=== PATIENT | male | born 1945 | race Caucasian/White ===

== ENCOUNTER 2022-10-10 22:39 | Inpatient (IN) | payer MEDICARE, BC, SELFPAY ==
[2022-10-10 22:53] VITALS: BP 160/92; PULSE 74; TEMP 36.2; O2SAT 97; BMI 26.6
--- NOTE | 2022-10-10 22:58 | ED.GENADULT ---
HPI - General Adult General Time Seen by Provider: 23:05 <Lul Love MD - Last Filed: 10/14/22 05:40> Date Seen: 10/10/22 <Lul Love MD - Last Filed: 10/14/22 05:40> Chief complaint: Chest Pain <Lul Love MD - Last Filed: 10/14/22 05:40> Stated complaint: Abdominal pain, Chest pain <Lul Love MD - Last Filed: 10/14/22 05:40> Time Seen by Provider: 10/10/22 22:58 <Lul Love MD - Last Filed: 10/14/22 05:40> Source: patient and family <Lul Love MD - Last Filed: 10/14/22 05:40> Mode of arrival: ambulatory <Lul Love MD - Last Filed: 10/14/22 05:40> Limitations: no limitations <Lul Love MD - Last Filed: 10/14/22 05:40> History of Present Illness HPI narrative: 77-year-old male who comes in today with chest and abdominal pain. Patient was eating about 4 hours prior to coming emergency department had abrupt onset of upper abdominal pain going into the chest. He had nausea and some dry heaves but no vomiting. Pain in the chest is at relieved now but he still continues to have some abdominal pain. This is generalized but more toward the middle of the abdomen and under the breast bone. No relieving or exacerbating factors, does not seem to be worse with eating, drinking, or movement. Has not taken anything for his symptoms. No prior abdominal surgeries. He was started on turbinafine for onychomycosis about a week ago. <Lul Love MD - Last Filed: 10/14/22 05:40> Related Data Home medications: Home Medications Medication Instructions Recorded Confirmed Lactobacillus acidophilus 1.5 mg 100 mmu cells PO DAILY 05/28/22 10/11/22 (250 million cell) capsule (Probiotic Acidophilus) acetaminophen 325 mg tablet 650 mg PO Q4-6H PRN 05/28/22 10/11/22 chlorthalidone 25 mg tablet 25 mg PO Q48H 05/28/22 10/11/22 coenzyme Q10 100 mg capsule 100 mg PO DAILY 05/28/22 10/11/22 fluorouracil 5 % topical cream 5 applic topical .One Day Per Week 05/28/22 10/11/22 lisinopril 20 mg tablet 20 mg PO DAILY 05/28/22 10/11/22 loratadine 10 mg tablet 10 mg PO DAILY 05/28/22 10/11/22 multivitamin 1 tab PO QAM 05/28/22 10/11/22 omega-3 fatty acids 1 cap PO DAILY 05/28/22 10/11/22 omeprazole 20 mg capsule,delayed 20 mg PO DAILY 05/28/22 10/11/22 release simvastatin 10 mg tablet 10 mg PO HS 05/28/22 10/11/22 trazodone 100 mg tablet 100 mg PO HS 05/28/22 10/11/22 terbinafine HCl 250 mg tablet 250 mg PO DAILY 10/11/22 10/11/22 Previous Rx's Medication Instructions Recorded oxycodone 5 mg tablet 5 mg PO Q6H PRN pain #10 tabs 10/12/22 sennosides 8.6 mg capsule (senna) 8.6 mg PO DAILY PRN constipation 10/12/22 #90 caps <Lul Love MD - Last Filed: 10/14/22 05:40> Allergies/adverse reactions: Allergies Allergy/AdvReac Type Severity Reaction Status Date / Time No Known Allergies Allergy Verified 10/01/22 09:40 <Lul Love MD - Last Filed: 10/14/22 05:40> [facility] Medical History: Medical History (Updated 10/12/22 @ 17:39 by Blanche Titus MD) Toenail fungus <Lul Love MD - Last Filed: 10/14/22 05:40> Surgical History: Surgical History (Updated 10/12/22 @ 17:36 by Blanche Titus MD) History of cholecystectomy History of tonsillectomy <Lul Love MD - Last Filed: 10/14/22 05:40> Social History: Social History Narrative: He is here with his . 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 Never smoke cigarettes. Recently has been drinking 2 alcoholic beverages per day Smoking Status: Never smoker How often do you have a drink containing alcohol: 4 or more times a week How many standard drinks containing alcohol do you have on a typical day: 3 or 4 How often do you have six or more drinks on one occasion: Never AUDIT-C Alcohol total score: 5 Non-prescribed substance use: denies use Caffeine: No service: No <Lul Love MD - Last Filed: 10/14/22 05:40> Exam Narrative: Exam Narrative: General: Well-developed and well-nourished, no acute distress Head: Atraumatic and normocephalic Eyes: Pupils are equal reactive, extraocular motions intact, conjunctiva clear ENT: External nose and ears are normal, posterior pharynx without erythema or exudate Neck: No midline cervical tenderness, full spontaneous range of motion the neck, trachea midline, no adenopathy Heart: Regular rate and rhythm no murmurs or thrills Lungs: Clear to auscultation bilaterally without wheezes or crackles Abdomen: Soft, mild diffuse tenderness worse in the epigastrium and right lower quadrant, nondistended with active bowel sounds Musculoskeletal: No tenderness, deformity, or edema Neurologic: Awake, alert, and oriented x3, no gross focal neurologic deficits, cranial nerves intact as tested Psych: Mood and affect are appropriate Skin: No rashes <Lul Love MD - Last Filed: 10/14/22 05:40> Const: Vital Signs, click to edit/add: Vital Signs - 24 hr 10/10/22 22:53 10/10/22 23:09 10/10/22 23:15 Temperature 97.1 F L Pulse Rate 82 85 Pulse Rate [Pulse Oximeter] 74 Blood Pressure Blood Pressure [Ri ght Upper Arm] 160/92 H Pulse Oximetry 97 96 96 Oxygen Delivery Me thod Room Air 10/10/22 23:30 10/10/22 23:45 10/11/22 00:07 Temperature Pulse Rate 79 77 92 Pulse Rate [Pulse Oximeter] Blood Pressure Blood Pressure [Ri ght Upper Arm] Pulse Oximetry 96 94 98 Oxygen Delivery Me thod 10/11/22 00:15 10/11/22 00:30 10/11/22 00:45 Temperature Pulse Rate 82 85 75 Pulse Rate [Pulse Oximeter] Blood Pressure Blood Pressure [Ri ght Upper Arm] Pulse Oximetry 95 96 97 Oxygen Delivery Me thod 10/11/22 01:00 10/11/22 01:15 10/11/22 01:30 Temperature Pulse Rate 66 66 68 Pulse Rate [Pulse Oximeter] Blood Pressure Blood Pressure [Ri ght Upper Arm] Pulse Oximetry 95 96 96 Oxygen Delivery Me thod 10/11/22 01:45 10/11/22 02:00 10/11/22 02:07 Temperature Pulse Rate 71 76 70 Pulse Rate [Pulse Oximeter] Blood Pressure 151/79 H Blood Pressure [Ri ght Upper Arm] Pulse Oximetry 90 96 95 Oxygen Delivery Me thod <Lul Love MD - Last Filed: 10/14/22 05:40> Vital Signs, click to edit/add: Vital Signs - 24 hr 10/10/22 22:53 10/10/22 23:09 10/10/22 23:15 Temperature 97.1 F L Pulse Rate 82 85 Pulse Rate [Pulse Oximeter] 74 Blood Pressure Blood Pressure [Ri ght Upper Arm] 160/92 H Pulse Oximetry 97 96 96 Oxygen Delivery Me thod Room Air 10/10/22 23:30 10/10/22 23:45 10/11/22 00:07 Temperature Pulse Rate 79 77 92 Pulse Rate [Pulse Oximeter] Blood Pressure Blood Pressure [Ri ght Upper Arm] Pulse Oximetry 96 94 98 Oxygen Delivery Me thod 10/11/22 00:15 10/11/22 00:30 10/11/22 00:45 Temperature Pulse Rate 82 85 75 Pulse Rate [Pulse Oximeter] Blood Pressure Blood Pressure [Ri ght Upper Arm] Pulse Oximetry 95 96 97 Oxygen Delivery Me thod 10/11/22 01:00 10/11/22 01:15 10/11/22 01:30 Temperature Pulse Rate 66 66 68 Pulse Rate [Pulse Oximeter] Blood Pressure Blood Pressure [Ri ght Upper Arm] Pulse Oximetry 95 96 96 Oxygen Delivery Me thod 10/11/22 01:45 10/11/22 02:00 10/11/22 02:07 Temperature Pulse Rate 71 76 70 Pulse Rate [Pulse Oximeter] Blood Pressure 151/79 H Blood Pressure [Ri ght Upper Arm] Pulse Oximetry 90 96 95 Oxygen Delivery Me thod <Judith Reeder MD - Last Filed: 10/11/22 02:38> Course Course Hospital Course: Patient seen and examined, prior records reviewed. Patient presents with abrupt onset abdominal pain radiating to the chest, now just in the abdomen. Epigastric and right lower quadrant tenderness on exam. Differential diagnosis includes but not limited to gastritis, acute cholecystitis, enteritis, appendicitis, bowel obstruction. Acute coronary syndrome possible but less likely. Labs and CT scan of the abdomen and pelvis are ordered. Patient declines pain medicine and nausea medicine now. <Lul Love MD - Last Filed: 10/14/22 05:40> Reevaluation(s) Reevaluation #1: Labs are reassuring other than elevated lipase periods symptoms today certainly could be secondary to acute pancreatitis, likely from gallstones as patient has no history of alcohol use or diabetes. CT scan is pending. <Lul Love MD - Last Filed: 10/14/22 05:40> Time: 23:40 <Lul Love MD - Last Filed: 10/14/22 05:40> Vital Signs Vital signs: Initial Vital Signs Temperature 97.1 F L 10/10/22 22:53 Temperature Source Temporal Artery Scan 10/10/22 22:53 Pulse Rate 74 10/10/22 22:53 Blood Pressure 160/92 H 10/10/22 22:53 Blood Pressure Mean 114 10/10/22 22:53 Pulse Oximetry 97 10/10/22 22:53 Oxygen Delivery Method 10/10/22 22:53 Vital Signs Temperature 97.1 F L 10/10/22 22:53 Pulse Rate 74 10/10/22 22:53 Blood Pressure 160/92 H 10/10/22 22:53 Pulse Oximetry 97 10/10/22 22:53 Oxygen Delivery Method 10/10/22 22:53 Temperature 98 F 10/12/22 17:53 Pulse Rate 80 10/12/22 17:53 Respiratory Rate 16 10/12/22 17:53 Blood Pressure 153/87 H 10/12/22 17:53 Pulse Oximetry 95 10/12/22 16:00 Oxygen Delivery Method 10/12/22 16:00 Oxygen Flow Rate 0 10/12/22 15:30 <Lul Love MD - Last Filed: 10/14/22 05:40> Initial Vital Signs Temperature 97.1 F L 10/10/22 22:53 Temperature Source Temporal Artery Scan 10/10/22 22:53 Pulse Rate 74 10/10/22 22:53 Blood Pressure 160/92 H 10/10/22 22:53 Blood Pressure Mean 114 10/10/22 22:53 Pulse Oximetry 97 10/10/22 22:53 Oxygen Delivery Method 10/10/22 22:53 Vital Signs Temperature 97.1 F L 10/10/22 22:53 Pulse Rate 74 10/10/22 22:53 Blood Pressure 160/92 H 10/10/22 22:53 Pulse Oximetry 97 10/10/22 22:53 Oxygen Delivery Method 10/10/22 22:53 Temperature 98 F 10/12/22 17:53 Pulse Rate 80 10/12/22 17:53 Respiratory Rate 16 10/12/22 17:53 Blood Pressure 153/87 H 10/12/22 17:53 Pulse Oximetry 95 10/12/22 16:00 Oxygen Delivery Method 10/12/22 16:00 Oxygen Flow Rate 0 10/12/22 15:30 <Judith Reeder MD - Last Filed: 10/11/22 02:38> Medical Decision Making MDM Narrative Medical decision making narrative: Update: 0145 Dr. Reeder: Counseled patient and his on diagnostic imaging and lab findings. Suspect gallstone pancreatitis. Suspect that he has actually passed the stone. No signs of unstable vitals, hypotension, severe uncontrolled pain. Would recommend hospitalization, ultrasound in the morning, NPO, IV fluids. Accepted by [facility] hospitalist. Requests full code status, will allow sips of clear liquids. IV fluid bolus started. Additional orders will come from hospitalist team. <Judith Reeder MD - Last Filed: 10/11/22 02:38> Lab Data Labs: Lab Results 10/10/22 10/10/22 10/10/22 Range/Units 22:55 23:00 23:00 WBC 10.21 (4.50-11.00) K/uL RBC 4.60 (4.30-5.90) m/uL Hgb 14.9 (13.5-17.5) gm/dL Hct 43.7 (37.0-53.0) % MCV 95 (80-100) fL MCH 32 (26-34) pg MCHC 34 (32-36) gm/dL RDW Coeff of [place] 12.6 (11.5-15.5) % Plt Count 213 (140-440) K/uL Neut % (Auto) 80.2 H (42.0-72.0) % Lymph % (Auto) 12.4 L (20-44) % [place] % (Auto) 6.4 (0.0-11.0) % Eos % (Auto) 0.2 (0.0-7.0) % Baso % (Auto) 0.5 (0.0-3.0) % Neut # (Auto) 8.20 H (1.7-7.0) K/uL Lymph # (Auto) 1.30 (0.90-2.90) K/uL [place] # (Auto) 0.70 (0.00-0.90) K/UL Eos # (Auto) 0.02 (0.00-0.50) K/uL Baso # (Auto) 0.05 (0.00-0.30) K/uL Abs Immat Gran (auto) 0.03 (0.00-0.30) K/uL Imm/Tot Granulo (auto) 0.3 % Sodium 136 (135-149) mmol/L Potassium 3.7 (3.6-5.1) mmol/L Chloride 101 (96-114) mmol/L Carbon Dioxide 27 (20-32) mmol/L BUN 22 (7-30) mg/dL Creatinine 1.1 (0.5-1.5) mg/dL Estimated Creat Clear 55.27 Estimated GFR 70 ml/min Glucose 125 H (60-115) mg/dL Calcium 9.1 (8.4-10.6) mg/dL Total Bilirubin 0.5 (0.1-1.5) mg/dL Direct Bilirubin 0.2 (0.0-0.5) mg/dL AST 34 (12-35) U/L ALT 22 (4-50) U/L Alkaline Phosphatase 124 (40-150) U/L Total Protein 7.2 (6.0-8.3) g/dL Albumin 4.6 (3.3-5.0) g/dL Lipase 3695 H (23-300) U/L SARS-CoV-2 (PCR) (Negative) Influenza Type A (PCR) (Negative) Influenza Type B (PCR) (Negative) POC Troponin I 0.01 (0.01-0.04) ng/ml 10/11/22 Range/Units 03:20 WBC (4.50-11.00) K/uL RBC (4.30-5.90) m/uL Hgb (13.5-17.5) gm/dL Hct (37.0-53.0) % MCV (80-100) fL MCH (26-34) pg MCHC (32-36) gm/dL RDW Coeff of [place] (11.5-15.5) % Plt Count (140-440) K/uL Neut % (Auto) (42.0-72.0) % Lymph % (Auto) (20-44) % [place] % (Auto) (0.0-11.0) % Eos % (Auto) (0.0-7.0) % Baso % (Auto) (0.0-3.0) % Neut # (Auto) (1.7-7.0) K/uL Lymph # (Auto) (0.90-2.90) K/uL [place] # (Auto) (0.00-0.90) K/UL Eos # (Auto) (0.00-0.50) K/uL Baso # (Auto) (0.00-0.30) K/uL Abs Immat Gran (auto) (0.00-0.30) K/uL Imm/Tot Granulo (auto) % Sodium (135-149) mmol/L Potassium (3.6-5.1) mmol/L Chloride (96-114) mmol/L Carbon Dioxide (20-32) mmol/L BUN (7-30) mg/dL Creatinine (0.5-1.5) mg/dL Estimated Creat Clear Estimated GFR ml/min Glucose (60-115) mg/dL Calcium (8.4-10.6) mg/dL Total Bilirubin (0.1-1.5) mg/dL Direct Bilirubin (0.0-0.5) mg/dL AST (12-35) U/L ALT (4-50) U/L Alkaline Phosphatase (40-150) U/L Total Protein (6.0-8.3) g/dL Albumin (3.3-5.0) g/dL Lipase (23-300) U/L SARS-CoV-2 (PCR) Negative SARS-CoV-2 (Negative) Influenza Type A (PCR) Negative PCR FLU A (Negative) Influenza Type B (PCR) Negative PCR FLU B (Negative) POC Troponin I (0.01-0.04) ng/ml <Lul Love MD - Last Filed: 10/14/22 05:40> Lab Results 10/10/22 10/10/22 10/10/22 Range/Units 22:55 23:00 23:00 WBC 10.21 (4.50-11.00) K/uL RBC 4.60 (4.30-5.90) m/uL Hgb 14.9 (13.5-17.5) gm/dL Hct 43.7 (37.0-53.0) % MCV 95 (80-100) fL MCH 32 (26-34) pg MCHC 34 (32-36) gm/dL RDW Coeff of Mason 12.6 (11.5-15.5) % Plt Count 213 (140-440) K/uL Neut % (Auto) 80.2 H (42.0-72.0) % Lymph % (Auto) 12.4 L (20-44) % [place] % (Auto) 6.4 (0.0-11.0) % Eos % (Auto) 0.2 (0.0-7.0) % Baso % (Auto) 0.5 (0.0-3.0) % Neut # (Auto) 8.20 H (1.7-7.0) K/uL Lymph # (Auto) 1.30 (0.90-2.90) K/uL [place] # (Auto) 0.70 (0.00-0.90) K/UL Eos # (Auto) 0.02 (0.00-0.50) K/uL Baso # (Auto) 0.05 (0.00-0.30) K/uL Abs Immat Gran (auto) 0.03 (0.00-0.30) K/uL Imm/Tot Granulo (auto) 0.3 % Sodium 136 (135-149) mmol/L Potassium 3.7 (3.6-5.1) mmol/L Chloride 101 (96-114) mmol/L Carbon Dioxide 27 (20-32) mmol/L BUN 22 (7-30) mg/dL Creatinine 1.1 (0.5-1.5) mg/dL Estimated Creat Clear 55.27 Estimated GFR 70 ml/min Glucose 125 H (60-115) mg/dL Calcium 9.1 (8.4-10.6) mg/dL Total Bilirubin 0.5 (0.1-1.5) mg/dL Direct Bilirubin 0.2 (0.0-0.5) mg/dL AST 34 (12-35) U/L ALT 22 (4-50) U/L Alkaline Phosphatase 124 (40-150) U/L Total Protein 7.2 (6.0-8.3) g/dL Albumin 4.6 (3.3-5.0) g/dL Lipase 3695 H (23-300) U/L SARS-CoV-2 (PCR) (Negative) Influenza Type A (PCR) (Negative) Influenza Type B (PCR) (Negative) POC Troponin I 0.01 (0.01-0.04) ng/ml 10/11/22 Range/Units 03:20 WBC (4.50-11.00) K/uL RBC (4.30-5.90) m/uL Hgb (13.5-17.5) gm/dL Hct (37.0-53.0) % MCV (80-100) fL MCH (26-34) pg MCHC (32-36) gm/dL RDW Coeff of Mason (11.5-15.5) % Plt Count (140-440) K/uL Neut % (Auto) (42.0-72.0) % Lymph % (Auto) (20-44) % [place] % (Auto) (0.0-11.0) % Eos % (Auto) (0.0-7.0) % Baso % (Auto) (0.0-3.0) % Neut # (Auto) (1.7-7.0) K/uL Lymph # (Auto) (0.90-2.90) K/uL [place] # (Auto) (0.00-0.90) K/UL Eos # (Auto) (0.00-0.50) K/uL Baso # (Auto) (0.00-0.30) K/uL Abs Immat Gran (auto) (0.00-0.30) K/uL Imm/Tot Granulo (auto) % Sodium (135-149) mmol/L Potassium (3.6-5.1) mmol/L Chloride (96-114) mmol/L Carbon Dioxide (20-32) mmol/L BUN (7-30) mg/dL Creatinine (0.5-1.5) mg/dL Estimated Creat Clear Estimated GFR ml/min Glucose (60-115) mg/dL Calcium (8.4-10.6) mg/dL Total Bilirubin (0.1-1.5) mg/dL Direct Bilirubin (0.0-0.5) mg/dL AST (12-35) U/L ALT (4-50) U/L Alkaline Phosphatase (40-150) U/L Total Protein (6.0-8.3) g/dL Albumin (3.3-5.0) g/dL Lipase (23-300) U/L SARS-CoV-2 (PCR) Negative SARS-CoV-2 (Negative) Influenza Type A (PCR) Negative PCR FLU A (Negative) Influenza Type B (PCR) Negative PCR FLU B (Negative) POC Troponin I (0.01-0.04) ng/ml <Judith Reeder MD - Last Filed: 10/11/22 02:38> ECG Data Attestation: I personally reviewed and interpreted this ECG as follows: <Lul Love MD - Last Filed: 10/14/22 05:40> Prior ECG tracings: not available for review <Lul Love MD - Last Filed: 10/14/22 05:40> Interpretation: Performed at 10:46 p.m. demonstrates sinus rhythm first-degree AV block and occasional PVCs, no acute ST elevations or depressions, normal intervals, normal axis, QTC 449, AK 266. No prior for comparison. <Lul Love MD - Last Filed: 10/14/22 05:40> Discharge Plan Discharge Clinical Impression: Acute gallstone pancreatitis <Lul Love MD - Last Filed: 10/14/22 05:40> Patient Disposition: Admitted As Inpatient <Lul Love MD - Last Filed: 10/14/22 05:40> Condition: Stable <Lul Love MD - Last Filed: 10/14/22 05:40> Activity Level: No strenuous activity <Lul Love MD - Last Filed: 10/14/22 05:40> No strenuous activity <Judith Reeder MD - Last Filed: 10/11/22 02:38> Activity Detail: Activity as tolerated. Avoid strenuous activity. No lifting greater than 20 lb for 2 weeks. <Lul Love MD - Last Filed: 10/14/22 05:40> Activity as tolerated. Avoid strenuous activity. No lifting greater than 20 lb for 2 weeks. <Judith Reeder MD - Last Filed: 10/11/22 02:38> Discharge Diet: Low Fat/Low Cholesterol <Lul Love MD - Last Filed: 10/14/22 05:40> Low Fat/Low Cholesterol <Judith Reeder MD - Last Filed: 10/11/22 02:38> Diet Detail: Continue with a low-fat diet for 2 weeks. After 2 weeks you can start adding in more normal foods. <Lul Love MD - Last Filed: 10/14/22 05:40> Continue with a low-fat diet for 2 weeks. After 2 weeks you can start adding in more normal foods. <Judith Reeder MD - Last Filed: 10/11/22 02:38>
[2022-10-10 23:09] VITALS: PULSE 82; O2SAT 96
--- NOTE | 2022-10-10 23:09 | CRLHL7_ITS ---
For Patients: As a result of the Century Cures Act, medical imaging exams and procedure reports are released immediately into your electronic medical record. You may view this report before your referring provider. If you have questions, please contact your health care provider. INDICATION: Abdominal pain. TECHNIQUE: CT abdomen and pelvis acquired with 85 cc Isovue 370 IV contrast. COMPARISON: CT abdomen 10/13/2015. FINDINGS: Lower chest: Mild bibasilar atelectasis. Coronary atherosclerotic calcification. Liver: Unremarkable. Normal in size and attenuation. No suspicious masses. Gallbladder and bile ducts: Small cholelithiasis within the gallbladder neck. No pericholecystic fluid or mural thickening. Mild intrahepatic biliary ductal dilatation. The common bile duct is normal diameter for the patient`s age Pancreas: Unremarkable. No mass or inflammation. Spleen: Unremarkable. Normal in size. No masses. Adrenal glands: Unremarkable. No nodules. Kidneys: Unremarkable. No suspicious masses, stones, or hydronephrosis. GI tract: Unremarkable. Normal in caliber. No sign of mass or inflammation. The appendix is not clearly visualized; however, no inflammatory changes are seen in the right lower quadrant. Vasculature: Normal caliber abdominal aorta with moderate to severe atherosclerotic calcification. Mesenteric arteries are patent. Lymph nodes: No lymphadenopathy. Peritoneum/Abdominal Wall: Unremarkable. No free air or significant free fluid. Pelvis: Unremarkable. Bones: Advanced degenerative changes of the spine. IMPRESSION: Mild intrahepatic biliary ductal dilatation without dilatation of the common bile duct. This is of unclear etiology/clinical significance. Cholelithiasis without evidence of cholecystitis. Otherwise, no acute findings within the abdomen and pelvis. Please note that all CT scans at this facility use dose modulation, iterative reconstruction, and/or weight-based dosing when appropriate to reduce radiation dose to as low as reasonably achievable. Dictated by Steve Barriga MD @ 10/11/2022 12:54:59 AM (Electronically Signed)
[2022-10-10 23:11] LABS: Troponin, Point-of-Care* 0.01 ng/ml (0.01-0.04)
[2022-10-10 23:15] VITALS: PULSE 85; O2SAT 96
--- OUTSIDE RECORDS SUMMARY | 2022-10-10 23:17 | XMS_ITS | Clinical Summary ---
:1945 Author Organization [employer] [facility] [place] [address] Care Team Providers Name Role Phone Sixto Russell Raymond Unavailable Reanna Willard MD Primary Care Provider Allergies Active Allergy Reactions Severity Noted Date Comments Atorvastatin Myalgia 07/10/2008 Medications Medication Sig Dispensed Refills Start Date End Date Status calcium 600 mg Take 1 capsule by 0 12/17/2010 Active capsuleIndications: mouth once daily. Preventative health care coenzyme q10 (CO Take by mouth once 0 12/17/2010 Active Q-10) 100 mg daily. CapIndications: Preventative health care omega-3 fatty Take by mouth. 0 12/17/2010 Active acids-vitamin E (FISH OIL) 1,000 mg CapIndications: Mixed hyperlipidemia multivitamin-mineral Take 1 tablet by 0 12/17/2010 Active s therapeutic mouth once daily. (THERAPEUTIC-M) tabletIndications: Preventative health care cetirizine (ZYRTEC) Take 1 tablet by 0 12/17/2010 Active 10 mg mouth once daily. tabletIndications: Chronic rhinitis chlorthalidone Take 1 tablet by 90 tablet 3 04/26/2013 Active (HYGROTON) 25 mg mouth once daily. tabletIndications: Unspecified essential hypertension lisinopril Take 1 tablet by 90 tablet 3 04/26/2013 A ctive (PRINIVIL; ZESTRIL) mouth once daily. 20 mg tabletIndications: Unspecified essential hypertension omeprazole Take 1 capsule by 90 capsule 3 04/26/2013 Active (PRILOSEC) 20 mg mouth once daily capsuleIndications: before a meal. Esophageal reflux traZODone (DESYREL) Take 1 tablet by 90 tablet 3 04/26/2013 Active 100 mg mouth at bedtime. tabletIndications: Insomnia, unspecified fluorouracil 5% 0 07/05/2021 Act nicci topical (EFUDEX) 5 % cream simvastatin (ZOCOR) 0 07/08/2021 Active 10 mg tablet HYDROcodone-acetamin Take 1 Tablet by 21 Tablet 0 10/19/2021 Active ophen ([place]) 5-325 mouth every 4 hours mg per if needed for Pain. tabletIndications: Max acetaminophen Spinal stenosis of dose: 4000mg in 24 lumbar region with hrs. neurogenic claudication Active Problems Problem Noted Date Sciatica of right side 04/26/2013 Onychomycosis 04/26/2013 Overview: Left toes; will observe ACP (advance care planning) 03/09/2012 Overview: Discussed. 03/09/2012 Prostate nodule 03/09/2012 Overview: Noted first time today 03/09/2012 Erectile dysfunction 01/25/2011 Left hip pain 11/09/2009 Overview: leg length discrepancy - hip pain resolv ed with shoe lift! 03/12/2010 Preventative health care 01/06/2009 Overview: Colonoscopy 01/2009 normal repeat in10 ye ars Unspecified essential hypertension 10/18/2008 Chronic rhinitis 10/15/2007 Sensorineural hearing loss, bilateral 10/15/2007 Other malignant neoplasm of skin, site unspecified Overview: basal cell carcinoma neck Esophageal reflux 10/15/2007 Insomnia, unspecified 10/15/2007 Routine general medical examination at [facility] acility 10/15/2007 Impaired fasting glucose 10/15/2007 Special screening for malignant neoplasm of prostate 0 07/07/2007 Mixed hyperlipidemia 07/07/2007 Immunizations Name Administration Dates Next Due AMB Influenza, IIV3 (Age >=3 09/01/2013, 08/16/2011, 008, years)(Flu Clinic Only) 08/26/2008 Influenza A (H1N1), Inactivated (Age 0111/09/2009 >=3 Years) Influenza, IIV3 (Age >=3 years) 09/03/2012, 07/23/2010, 10/0 11/2008, 09/30/2007 Pneumococcal Poly,23-Valent 03/09/2012 (Pneumovax) Td (Age >=7 Years) 06/02/2002 Tdap 01/24/2011 Tuberculin (PPD) 07/31/1998 Zoster (Zostavax-ZVL, live) 10/15/2007 Family History Medical History Relation Name Comments Diabetes Brother 2 Bertram Hypertension Brother 2 Bertram Other Brother 2 Bertram Obesity Heart Disease Father Alex Hypertension Father Alex Stroke Father Alex Diabetes Maternal Grandmother Day Cancer Mother Day Corrales LIver Diabetes Mother Day Corrales Anesthesia Problem No Family History Blood Disease No Family History Relation Name Status Comments Brother 1 Alex (Age 30) MVA Brother 2 Bertram Alive Father Alex (Age 78) CVA,NE Maternal Grandmother Day Mother Day Corrales (Age 74) Liver Ca Social History Tobacco Use Types Packs/Day Years Used Date Never Smoker Smokeless Tobacco: Never Used Tobacco Cessation: Counseling Given: Yes Alcohol Use Standard Drinks/Week Comments Yes 5 (1 standard drink = 0.6 oz pure alcoho l) 2-3 per week Alcohol Habits Answer Date Recorded How often do you have a drink containing alcohol? Not asked How many drinks containing alcohol do you have on a Not aske d typical day when you are drinking? How often do you have six or more drinks on one occasion? No t asked Comment: 2-3 per week 01/24/2011 Sex Assigned at Date Recorded Not on file Obstetrics History Last Filed Vital Signs Vital Sign Reading Time Taken Comments Blood Pressure 124/68 11/29/2021 8:17 AM SHEET TAKER Pulse 58 11/29/2021 8:17 AM SHEET TAKER Temperature 36.7 ??C (98 ??F) 11/29/2021 8:17 AM SHEET TAKER Respiratory Rate - - Oxygen Saturation 99% 11/29/2021 8:17 AM SHEET TAKER Inhaled Oxygen Concentration - - Weight 77.1 kg (170 lb) 09/05/2021 11:17 AM CDT Height 174 cm (5' 8.5) 09/03/2013 12:48 PM CDT Body Mass Index 25.47 09/03/2013 12:48 PM CDT Plan of Treatment Health Maintenance Due Date Last Done Comments Depression screening for age 12+ 1958 BMI (ht and wt on same day) for 1964 age 18+ Hepatitis C screening for age 1008/07/1964 18-79 Zoster (shingles) series for age 0212/10/2007 10/15/2007 50+ (2 of 3) Pneumococcal series for age 65+ (2 03/09/2013 03/09/2012 - PCV) Medicare Wellness for age 65+ 04/26/2014 04/26/2013, 2011 Tetanus booster 01/24/2021 01/24/2011, 06/02/2002 COVID-19 vaccine series (3 - 03/12/2021 01/15/2021, 021 Booster for Moderna series) Influenza for age 65+ 07/04/2022 09/01/2013, 09/03/2012, 08/16/2011, Additional history exists Tdap Completed 01/24/2011 Results Not on filefrom Last 3 Months Insurance Payer Benefit Plan / Subscriber ID Effective Dates Phone Addre ss Type Group BLUE CROSS MR BLUE CROSS [id number] 2016-Present [address] [address] [place], [place] ONLY [id number] Advance Directives Documents on File Type Date Recorded 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, 02/02 Care Teams Contracts Officer Relationship Specialty Start Date End Date Reanna Willard MD PCP - General Internal Medicine 08/07/171999 [place] [address] Sixto Russell Cork Slabs Sawyer 03/09/[address] [place] [id number]
[2022-10-10 23:21] LABS: Basophils Absolute Auto 0.05 K/uL (0.00-0.30); Basophils Percent Auto 0.5 % (0.0-3.0); Eosinophils Absolute Auto 0.02 K/uL (0.00-0.50); Eosinophils Percent Auto 0.2 % (0.0-7.0); Hematocrit 43.7 % (37.0-53.0); Hemoglobin* 14.9 gm/dL (13.5-17.5); Immature Granulocytes Abs Auto 0.03 K/uL (0.00-0.30); Immature Granulocytes Pct Auto 0.3 %; Lymphocytes Percent Auto 12.4 % (20-44); Mean Corpuscular HGB Conc 34 gm/dL (32-36); Mean Corpuscular Hemoglobin 32 pg (26-34); Mean Corpuscular Volume 95 fL (80-100); Monocytes Percent Auto 6.4 % (0.0-11.0); Neutrophils Percent Auto 80.2 % (42.0-72.0); Platelet Count* 213 K/uL (140-440); RDW Coefficient of Variation % 12.6 % (11.5-15.5); White Blood Count* 10.21 K/uL (4.50-11.00)
[2022-10-10 23:22] LABS: Chloride* 101 mmol/L (96-114); Slide Review Reflex No
[2022-10-10 23:23] LABS: Albumin* 4.6 g/dL (3.3-5.0); Potassium* 3.7 mmol/L (3.6-5.1); Sodium* 136 mmol/L (135-149)
[2022-10-10 23:25] LABS: Creatinine* 1.1 mg/dL (0.5-1.5); Est. Creatinine Clearance* 55.27; Estimated Glomerular Filt Rate 70 ml/min
[2022-10-10 23:26] LABS: Alanine Aminotransferase* 22 U/L (4-50); Alkaline Phosphatase* 124 U/L (40-150); Aspartate Amino Transferase* 34 U/L (12-35); Bilirubin Direct* 0.2 mg/dL (0.0-0.5); Bilirubin Total* 0.5 mg/dL (0.1-1.5); Blood Urea Nitrogen* 22 mg/dL (7-30); Calcium* 9.1 mg/dL (8.4-10.6); Carbon Dioxide* 27 mmol/L (20-32); Glucose* 125 mg/dL (60-115); Total Protein* 7.2 g/dL (6.0-8.3)
[2022-10-10 23:30] VITALS: PULSE 79; O2SAT 96
[2022-10-10 23:36] LABS: Lipase* 3695 U/L (23-300)
[2022-10-10 23:45] VITALS: PULSE 77; O2SAT 94
[2022-10-11] VITALS (23 sets, daily range): BP systolic 122–151; BP diastolic 74–87; PULSE 59–92; RESP 15–18; TEMP 36.1–36.8; O2SAT 90–98; BMI 27.5
[2022-10-11] MEDS: LACTATED RINGERS 1000 ML 1,000 ML 500 ML IV (02:07)
--- NOTE | 2022-10-11 03:11 | W.PC.EDHO ---
Primary Language: Preferred Language: Orientation Status: [] Alert & Oriented [] Slight Confusion [] Known Dx Dementia Transfers By: [] Assist of 1 [] Assist of 2 [] Lift Active Medications Generic Name Dose Route Start Last Admin Trade Name Shima PRN Reason Stop Dose Admin Lactated Ringer's 1,000 mls @ 500 mls/hr 10/11/22 01:53 10/11/22 02:07 Lactated Ringers 1000 Ml IV 10/11/22 03:52 500 mls/hr .Q2H KRISTINA Administration Description of Symptoms ED Triage Present Problem Patient reports being out at a local bar around 7P Description when he suddenly had chest pain he rates at 7/10, this lasted an hour. Patient also and still has epigastric pain that he rates as 6/10. Wanted to go home and try antacids to see if this helped. Reports drinking 3 michelle's daily. Female History Patient Pain Pain Description [Upper Tightness Abdomen] Pain Intensity [Upper Abdomen] 6 Pain Intensity 7 Pain Intensity 6 Pain Scale Used [Upper Abdomen Numeric (1 - 10) ] Pain Scale Used Numeric (1 - 10) Pain Scale Used Numeric (1 - 10) IV Insertion/Site Date of IV Line Insertion [ 10/10/22 Right Antecubital] Oxygen Administration Pulse Oximetry 95 Pulse Oximetry 96 Pulse Oximetry 90 Pulse Oximetry 96 Pulse Oximetry 96 Pulse Oximetry 95 Pulse Oximetry 97 Pulse Oximetry 96 Pulse Oximetry 95 Pulse Oximetry 98 Pulse Oximetry 94 Pulse Oximetry 96 Pulse Oximetry 96 Pulse Oximetry 96 Pulse Oximetry 97 Oxygen Delivery Method Room Air Cardiac Monitoring EKG Method 12 Lead EKG Method 12 Lead
[2022-10-11 04:04] LABS: PCR FLU A Negative PCR FLU A (Negative); PCR FLU B Negative PCR FLU B (Negative); SARS PCR* Negative SARS-CoV-2 (Negative)
--- NOTE | 2022-10-11 04:46 | CRLHL7_ITS ---
For Patients: As a result of the Century Cures Act, medical imaging exams and procedure reports are released immediately into your electronic medical record. You may view this report before your referring provider. If you have questions, please contact your health care provider. Indication: Evaluate for acute cholecystitis Technique: Sonography of the abdomen was performed limited to that which is discussed below Comparison: Limited portions of a CT from the preceding day, October 10, 2022 Findings: The common duct is distended measuring 9 millimeters. Exact cause of this dilatation is uncertain though the distal duct is not visible. There is gallbladder wall edema and mild thickening at 4 millimeters. There is sludge within the gallbladder and small stones. The thickening appears to represent a change since the prior study. The findings may indicate developing acute cholecystitis in the appropriate clinical setting. Impression: Gallbladder wall edema and mild thickening which appears to represent a change since the prior study. Dilated common bile duct. Sludge and stones within the gallbladder. The findings are suspicious for early/developing acute cholecystitis which should be considered in the appropriate clinical setting. Dictated by Jorge Guerra MD @ 10/11/2022 7:41:06 AM (Electronically Signed)
--- NOTE | 2022-10-11 04:49 | W.PM.CROSSCO ---
Assessment and Plan Assessment and plan (1) Acute gallstone pancreatitis: Status: Acute Plan Efrain Ayalaist Consult for Admission eHospitalist was contacted with request of consultation for admission. 77-year-old male, presenting with epigastric pain. Patient denies any prior similar occurrence. Patient states symptoms began approximately 4 hours prior to arrival. Describes pain originating in his upper abdomen and radiating into his chest. He endorses associated nausea, but denies vomiting. Unable to identify any relieving or exacerbating factors. Pain in chest has since resolved, but abdominal discomfort persists. Endorses associated bloating. Of note, patient was started on terbinafine last week for onychomycosis. Work-up in the ED notable for lipase of 3695. CT abdomen/pelvis noted mild intrahepatic biliary duct dilatation without dilatation of CBD, cholelithiasis without evidence of cholecystitis. Home Medications: see EMR Pertinent Medical History: Reviewed. Pertinent Social History: Reviewed. Exam (performed via interactive video with assistance of bedside nurse): General: alert, cooperative, no acute distress Lungs: clear to auscultation bilaterally without crackle or wheeze CV: regular rate and rhythm without loud murmur rub or gallop Abd: +BS, soft. Generally tender with palpation done by bedside nurse Ext: no pitting edema noted Skin: no rashes, bruises or lesions appreciated on gross visualization of exposed skin Neuro: alert, oriented x 3. facial muscles grossly intact, moves all extremities without any significant focal deficit appreciated by nurse #Pancreatitis, suspect gallstone induced ?NPO, aggressive IV fluid resuscitation. Will place patient on LR at 150 cc/hr. ?Patient currently denying need for analgesics, antiemetics ?Reasonable to obtain RUQ ultrasound in the morning to evaluate if still remains present if so, patient may need to be transferred for intervention. ?No need for antibiotics at this time, no evidence of cholangitis. ?Regarding terbinafine, UpToDate lists pancreatitis as postmarketing adverse reaction. Unclear whether contributed to current presentation or not. #Chronic medical conditions ? Home medications will need to be reviewed and resumed as appropriate once med rec is complete. Thank you for including Efrain Christine in this patient's care. This service is available for further assistance as requested by your care team by calling [phone]. Dictation Comment: This document was transcribed utilizing [id number] technology ([employer]). Occasional mistranslation may occur.
[2022-10-11] MEDS: LACTATED RINGERS 1000 ML 1,000 ML 150 ML IV ×4 (05:18→21:30)
[2022-10-11] MEDS: HYDROmorphone 0.5 mg/0.5 ml inj 0.2 MG IVP ×2 (05:51→08:48)
[2022-10-11] MEDS: ONDANSETRON 2 MG/ML inj 4 MG IVP (05:51)
--- NOTE | 2022-10-11 07:11 | PC.NURSE ---
pt up to floor at 0415. pleasant and cooperative. indep in room. c/o pain, Dilaudid given. c/o nausea, Zofran given with relief.
--- NOTE | 2022-10-11 11:10 | PM.IMPN1 ---
Subjective Date Seen: 10/11/22 Interval history: 77-year-old male admitted to the hospital Exam Const: Vital Signs, click to edit/add: Vital Signs - 24 hr 10/10/22 22:53 10/10/22 23:09 10/10/22 23:15 Temperature 97.1 F L Pulse Rate 82 85 Pulse Rate [Pulse Oximeter] 74 Respiratory Rate Blood Pressure Blood Pressure [Le ft Arm] Blood Pressure [Ri ght Upper Arm] 160/92 H Pulse Oximetry 97 96 96 Oxygen Delivery Me thod Room Air 10/10/22 23:30 10/10/22 23:45 10/11/22 00:07 Temperature Pulse Rate 79 77 92 Pulse Rate [Pulse Oximeter] Respiratory Rate Blood Pressure Blood Pressure [Le ft Arm] Blood Pressure [Ri ght Upper Arm] Pulse Oximetry 96 94 98 Oxygen Delivery Me thod 10/11/22 00:15 10/11/22 00:30 10/11/22 00:45 Temperature Pulse Rate 82 85 75 Pulse Rate [Pulse Oximeter] Respiratory Rate Blood Pressure Blood Pressure [Le ft Arm] Blood Pressure [Ri ght Upper Arm] Pulse Oximetry 95 96 97 Oxygen Delivery Me thod 10/11/22 01:00 10/11/22 01:15 10/11/22 01:30 Temperature Pulse Rate 66 66 68 Pulse Rate [Pulse Oximeter] Respiratory Rate Blood Pressure Blood Pressure [Le ft Arm] Blood Pressure [Ri ght Upper Arm] Pulse Oximetry 95 96 96 Oxygen Delivery Me thod 10/11/22 01:45 10/11/22 02:00 10/11/22 02:07 Temperature Pulse Rate 71 76 70 Pulse Rate [Pulse Oximeter] Respiratory Rate Blood Pressure 151/79 H Blood Pressure [Le ft Arm] Blood Pressure [Ri ght Upper Arm] Pulse Oximetry 90 96 95 Oxygen Delivery Me thod 10/11/22 02:08 10/11/22 02:15 10/11/22 02:30 Temperature Pulse Rate 71 87 74 Pulse Rate [Pulse Oximeter] Respiratory Rate Blood Pressure Blood Pressure [Le ft Arm] Blood Pressure [Ri ght Upper Arm] Pulse Oximetry 95 96 97 Oxygen Delivery Me thod 10/11/22 02:45 10/11/22 03:00 10/11/22 03:15 Temperature Pulse Rate 65 65 72 Pulse Rate [Pulse Oximeter] Respiratory Rate Blood Pressure Blood Pressure [Le ft Arm] Blood Pressure [Ri ght Upper Arm] Pulse Oximetry 96 95 95 Oxygen Delivery Me thod 10/11/22 03:23 10/11/22 03:30 10/11/22 04:20 Temperature 98 F Pulse Rate 71 68 Pulse Rate [Pulse Oximeter] Respiratory Rate 18 Blood Pressure 143/87 H Blood Pressure [Le ft Arm] Blood Pressure [Ri ght Upper Arm] Pulse Oximetry 96 95 95 Oxygen Delivery Me thod Room Air 10/11/22 04:20 10/11/22 08:25 Temperature 97.9 F Pulse Rate Pulse Rate [Pulse Oximeter] 59 L Respiratory Rate 18 16 Blood Pressure Blood Pressure [Le ft Arm] 128/76 Blood Pressure [Ri ght Upper Arm] Pulse Oximetry 95 93 Oxygen Delivery Me thod Room Air Room Air Labs Labs: Laboratory Results - last 24 hr 10/10/22 10/10/22 10/10/22 22:55 23:00 23:00 WBC 10.21 RBC 4.60 Hgb 14.9 Hct 43.7 MCV 95 MCH 32 MCHC 34 RDW Coeff of Mason 12.6 Plt Count 213 Neut % (Auto) 80.2 H Lymph % (Auto) 12.4 L [place] % (Auto) 6.4 Eos % (Auto) 0.2 Baso % (Auto) 0.5 Neut # (Auto) 8.20 H Lymph # (Auto) 1.30 [place] # (Auto) 0.70 Eos # (Auto) 0.02 Baso # (Auto) 0.05 Abs Immat Gran (auto) 0.03 Imm/Tot Granulo (auto) 0.3 Sodium 136 Potassium 3.7 Chloride 101 Carbon Dioxide 27 BUN 22 Creatinine 1.1 Estimated Creat Clear 55.27 Estimated GFR 70 Glucose 125 H Calcium 9.1 Total Bilirubin 0.5 Direct Bilirubin 0.2 AST 34 ALT 22 Alkaline Phosphatase 124 Total Protein 7.2 Albumin 4.6 Lipase 3695 H SARS-CoV-2 (PCR) Influenza Type A (PCR) Influenza Type B (PCR) POC Troponin I 0.01 10/11/22 03:20 WBC RBC Hgb Hct MCV MCH MCHC RDW Coeff of Mason Plt Count Neut % (Auto) Lymph % (Auto) [place] % (Auto) Eos % (Auto) Baso % (Auto) Neut # (Auto) Lymph # (Auto) [place] # (Auto) Eos # (Auto) Baso # (Auto) Abs Immat Gran (auto) Imm/Tot Granulo (auto) Sodium Potassium Chloride Carbon Dioxide BUN Creatinine Estimated Creat Clear Estimated GFR Glucose Calcium Total Bilirubin Direct Bilirubin AST ALT Alkaline Phosphatase Total Protein Albumin Lipase SARS-CoV-2 (PCR) Negative SARS-CoV-2 Influenza Type A (PCR) Negative PCR FLU A Influenza Type B (PCR) Negative PCR FLU B POC Troponin I
--- NOTE | 2022-10-11 11:11 | P.IMHP_ITS ---
Hospitalist- H&P: HPI History of Present Illness Date Seen: 10/11/22 Chief complaint: Abdominal pain, Chest pain Narrative: Luis Mahajan is a 77 year old male admitted to the hospital with onset of severe epigastric pain occurred yesterday afternoon. Patient reports that he was generally feeling well yesterday. He was walking around downtown and had some food to eat and had relatively abrupt onset of epigastric and chest pain. The pain continued to get worse any present to the emergency room for evaluation. He had nausea with retching. No vomiting. He has had no shortness of breath. He has had a mild persistent cough recently. No fever. He has a tendency towards constipation. No blood in his stool. No diarrhea. No urinary problems. Prior to this he reports no significant gastrointestinal problems. He does note that if he eats a large meal that he has quite a bit of discomfort and bloating. Otherwise no postprandial symptoms that he recalls. Between 1 in 2 years ago he lost about 20 lb. He has regained about 8 of those lb this year. He drinks 2 alcoholic beverages per day. Does not smoke. He was just started on terbinafine for toenail fungus Review of Systems Narrative: Review of systems is negative except as noted above [facility] Medical History Toenail fungus Surgical History History of tonsillectomy Social History (Updated 10/11/22 @ 11:18 by Kike Goyal MD) Narrative: He is here with his . 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 Never smoke cigarettes. Recently has been drinking 2 alcoholic beverages per day Smoking Status: Never smoker How often do you have a drink containing alcohol: 4 or more times a week How many standard drinks containing alcohol do you have on a typical day: 3 or 4 How often do you have six or more drinks on one occasion: Never AUDIT-C Alcohol total score: 5 Non-prescribed substance use: denies use Caffeine: No service: No Meds Home Medications and Allergies Home Medications Medication Instructions Recorded Confirmed Type Lactobacillus acidophilus 1.5 mg 100 mmu cells PO DAILY 05/28/22 10/11/22 History (250 million cell) capsule (Probiotic Acidophilus) acetaminophen 325 mg tablet 650 mg PO Q4-6H PRN 05/28/22 10/11/22 History chlorthalidone 25 mg tablet 25 mg PO Q48H 05/28/22 10/11/22 History coenzyme Q10 100 mg capsule 100 mg PO DAILY 05/28/22 10/11/22 History fluorouracil 5 % topical cream 5 applic topical .One Day Per Week 05/28/22 10/11/22 History lisinopril 20 mg tablet 20 mg PO DAILY 05/28/22 10/11/22 History loratadine 10 mg tablet 10 mg PO DAILY 05/28/22 10/11/22 History multivitamin 1 tab PO QAM 05/28/22 10/11/22 History omega-3 fatty acids 1 cap PO DAILY 05/28/22 10/11/22 History omeprazole 20 mg capsule,delayed 20 mg PO DAILY 05/28/22 10/11/22 History release simvastatin 10 mg tablet 10 mg PO HS 05/28/22 10/11/22 History trazodone 100 mg tablet 100 mg PO HS 05/28/22 10/11/22 History terbinafine HCl 250 mg tablet 250 mg PO DAILY 10/11/22 10/11/22 History Allergies Allergy/AdvReac Type Severity Reaction Status Date / Time No Known Allergies Allergy Verified 10/01/22 09:40 Exam Narrative: Exam Narrative: He is alert and appears in no distress. He gives his own history. Eyes are normal. Sclerae nonicteric. Oropharynx is normal. Neck is supple without mass or adenopathy. Respirations are clear to auscultation. Cardiovascular: S1, S2, regular rate and rhythm. No murmur gallop or rub. Abdomen: Bowel sounds active. Abdomen is soft with minimal epigastric tenderness. No mass. No peritonitis. Extremities without edema. Intact peripheral pulses. Const: Vital Signs, click to edit/add: Vital Signs - 24 hr 10/10/22 22:53 10/10/22 23:09 10/10/22 23:15 Temperature 97.1 F L Pulse Rate 82 85 Pulse Rate [Pulse Oximeter] 74 Respiratory Rate Blood Pressure Blood Pressure [Le ft Arm] Blood Pressure [Ri ght Upper Arm] 160/92 H Pulse Oximetry 97 96 96 Oxygen Delivery Me thod Room Air 10/10/22 23:30 12/08/22 23:45 10/11/22 00:07 Temperature Pulse Rate 79 77 92 Pulse Rate [Pulse Oximeter] Respiratory Rate Blood Pressure Blood Pressure [Le ft Arm] Blood Pressure [Ri ght Upper Arm] Pulse Oximetry 96 94 98 Oxygen Delivery Me thod 10/11/22 00:15 10/11/22 00:30 10/11/22 00:45 Temperature Pulse Rate 82 85 75 Pulse Rate [Pulse Oximeter] Respiratory Rate Blood Pressure Blood Pressure [Le ft Arm] Blood Pressure [Ri ght Upper Arm] Pulse Oximetry 95 96 97 Oxygen Delivery Me thod 10/11/22 01:00 10/11/22 01:15 10/11/22 01:30 Temperature Pulse Rate 66 66 68 Pulse Rate [Pulse Oximeter] Respiratory Rate Blood Pressure Blood Pressure [Le ft Arm] Blood Pressure [Ri ght Upper Arm] Pulse Oximetry 95 96 96 Oxygen Delivery Me thod 10/11/22 01:45 10/11/22 02:00 10/11/22 02:07 Temperature Pulse Rate 71 76 70 Pulse Rate [Pulse Oximeter] Respiratory Rate Blood Pressure 151/79 H Blood Pressure [Le ft Arm] Blood Pressure [Ri ght Upper Arm] Pulse Oximetry 90 96 95 Oxygen Delivery Me thod 10/11/22 02:08 10/11/22 02:15 10/11/22 02:30 Temperature Pulse Rate 71 87 74 Pulse Rate [Pulse Oximeter] Respiratory Rate Blood Pressure Blood Pressure [Le ft Arm] Blood Pressure [Ri ght Upper Arm] Pulse Oximetry 95 96 97 Oxygen Delivery Me thod 10/11/22 02:45 10/11/22 03:00 10/11/22 03:15 Temperature Pulse Rate 65 65 72 Pulse Rate [Pulse Oximeter] Respiratory Rate Blood Pressure Blood Pressure [Le ft Arm] Blood Pressure [Ri ght Upper Arm] Pulse Oximetry 96 95 95 Oxygen Delivery Me thod 10/11/22 03:23 10/11/22 03:30 10/11/22 04:20 Temperature 98 F Pulse Rate 71 68 Pulse Rate [Pulse Oximeter] Respiratory Rate 18 Blood Pressure 143/87 H Blood Pressure [Le ft Arm] Blood Pressure [Ri ght Upper Arm] Pulse Oximetry 96 95 95 Oxygen Delivery Me thod Room Air 10/11/22 04:20 10/11/22 08:25 Temperature 97.9 F Pulse Rate Pulse Rate [Pulse Oximeter] 59 L Respiratory Rate 18 16 Blood Pressure Blood Pressure [Le ft Arm] 128/76 Blood Pressure [Ri ght Upper Arm] Pulse Oximetry 95 93 Oxygen Delivery Me thod Room Air Room Air Documenting provider has reviewed patient's vital signs: yes Hospitalist - H&P: Result Labs Labs: Short CBC 10/10/22 Range/Units 23:00 WBC 10.21 (4.50-11.00) K/uL Hgb 14.9 (13.5-17.5) gm/dL Hct 43.7 (37.0-53.0) % Plt Count 213 (140-440) K/uL BMP 10/10/22 23:00 Sodium 136 Potassium 3.7 Chloride 101 Carbon Dioxide 27 BUN 22 Creatinine 1.1 Glucose 125 H Calcium 9.1 Liver Function 10/10/22 Range/Units 23:00 Total Bilirubin 0.5 (0.1-1.5) mg/dL Direct Bilirubin 0.2 (0.0-0.5) mg/dL AST 34 (12-35) U/L ALT 22 (4-50) U/L Alkaline Phosphatase 124 (40-150) U/L Albumin 4.6 (3.3-5.0) g/dL Assessment and Plan Assessment and plan (1) Acute gallstone pancreatitis: Problem comment: CT is unremarkable. Abdominal ultrasound shows 1 cm common bile duct. Symptomatically improved today. Consult surgery Status: Acute (2) Acute cholecystitis: Problem comment: CT is unremarkable. Abdominal ultrasound suggests acute cholecystitis. Initiate antibiotic with piperacillin tazobactam and consult surgery Status: Acute (3) Essential hypertension: Problem comment: Hold blood pressure medicines for now. Status: Acute (4) Gastroesophageal reflux disease: Problem comment: Does not appear to be significant cause of problems at this time Status: Acute (5) Toenail fungus: Problem comment: Terbinafine can cause pancreatitis but in this setting it appears unlikely that it is the cause Status: Acute Plan Admit to the hospital for IV antibiotics, IV fluids and surgery, probably tomorrow, with Dr. Roberts. Total time spent today is 75 minutes, 50 minutes in coordination of care and discussing with patient, , DrJose M: And other care providers ongoing evaluation and management of cholecystitis and gallstone pancreatitis
[2022-10-11] MEDS: PIPERACILLIN/TAZOBACTAM 3.375 GM in 0.9 % SODIUM CHLORIDE Mini-bag 100 ML IVPB ×3 (11:20→23:38)
[2022-10-11] MEDS: 0.9 % SODIUM CHLORIDE 250 ml IV (11:56)
--- NOTE | 2022-10-11 13:32 | PM.GSCN ---
History of Present Illness Consult details Date Seen: 10/11/22 Consult date: 10/11/22 Narrative: Patient is a very pleasant 77-year-old male, who presented to the emergency department last night for severe epigastric abdominal pain. He states that last evening his in him more walking around [place] and he ate some pizza. Shortly after eating he had severe pain in the middle of his abdomen and chest. He went home and tried to the throw up, but was unable to. He took some Pepcid and Mylanta, which helped with some of his chest discomfort, but his abdominal pain worsened. He then went to the emergency department for evaluation. He has never had pain like this before. He has never had abdominal surgery before. He does admit to drinking 2 drinks a day. Since being admitted his pain is still present, but being managed with pain medication. He denies having much of an appetite. Review of Systems Status of ROS: Reports: 10 or more systems reviewed and unremarkable except as noted in History and below [facility] Medical History Toenail fungus Surgical History History of tonsillectomy Social History Narrative: He is here with his . 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 Never smoke cigarettes. Recently has been drinking 2 alcoholic beverages per day Smoking Status: Never smoker How often do you have a drink containing alcohol: 4 or more times a week How many standard drinks containing alcohol do you have on a typical day: 3 or 4 How often do you have six or more drinks on one occasion: Never AUDIT-C Alcohol total score: 5 Non-prescribed substance use: denies use Caffeine: No service: No Meds Home Medications and Allergies Home Medications Medication Instructions Recorded Confirmed Type Lactobacillus acidophilus 1.5 mg 100 mmu cells PO DAILY 05/28/22 10/11/22 History (250 million cell) capsule (Probiotic Acidophilus) acetaminophen 325 mg tablet 650 mg PO Q4-6H PRN 05/28/22 10/11/22 History chlorthalidone 25 mg tablet 25 mg PO Q48H 05/28/22 10/11/22 History coenzyme Q10 100 mg capsule 100 mg PO DAILY 05/28/22 10/11/22 History fluorouracil 5 % topical cream 5 applic topical .One Day Per Week 05/28/22 10/11/22 History lisinopril 20 mg tablet 20 mg PO DAILY 05/28/22 10/11/22 History loratadine 10 mg tablet 10 mg PO DAILY 05/28/22 10/11/22 History multivitamin 1 tab PO QAM 05/28/22 10/11/22 History omega-3 fatty acids 1 cap PO DAILY 05/28/22 10/11/22 History omeprazole 20 mg capsule,delayed 20 mg PO DAILY 05/28/22 10/11/22 History release simvastatin 10 mg tablet 10 mg PO HS 05/28/22 10/11/22 History trazodone 100 mg tablet 100 mg PO HS 05/28/22 10/11/22 History terbinafine HCl 250 mg tablet 250 mg PO DAILY 10/11/22 10/11/22 History Allergies Allergy/AdvReac Type Severity Reaction Status Date / Time No Known Allergies Allergy Verified 10/01/22 09:40 Exam Narrative: Exam Narrative: General: Alert and oriented, no acute distress. Nontoxic in appearance. Respiratory: Equal breath rise bilaterally, maintained on room air CV: Regular rhythm rate Abdomen: Soft, nondistended, tender to deep palpation epigastric with no guarding or rebound. Negative Walker sign. Const: Vital Signs, click to edit/add: Vital Signs - 24 hr 10/10/22 22:53 10/10/22 23:09 10/10/22 23:15 Temperature 97.1 F L Pulse Rate 82 85 Pulse Rate [Pulse Oximeter] 74 Respiratory Rate Blood Pressure Blood Pressure [Le ft Arm] Blood Pressure [Ri ght Upper Arm] 160/92 H Pulse Oximetry 97 96 96 Oxygen Delivery Me thod Room Air 10/10/22 23:30 10/10/22 23:45 10/11/22 00:07 Temperature Pulse Rate 79 77 92 Pulse Rate [Pulse Oximeter] Respiratory Rate Blood Pressure Blood Pressure [Le ft Arm] Blood Pressure [Ri ght Upper Arm] Pulse Oximetry 96 94 98 Oxygen Delivery Me thod 10/11/22 00:15 10/11/22 00:30 10/11/22 00:45 Temperature Pulse Rate 82 85 75 Pulse Rate [Pulse Oximeter] Respiratory Rate Blood Pressure Blood Pressure [Le ft Arm] Blood Pressure [Ri ght Upper Arm] Pulse Oximetry 95 96 97 Oxygen Delivery Me thod 10/11/22 01:00 10/11/22 01:15 10/11/22 01:30 Temperature Pulse Rate 66 66 68 Pulse Rate [Pulse Oximeter] Respiratory Rate Blood Pressure Blood Pressure [Le ft Arm] Blood Pressure [Ri ght Upper Arm] Pulse Oximetry 95 96 96 Oxygen Delivery Me thod 10/11/22 01:45 10/11/22 02:00 10/11/22 02:07 Temperature Pulse Rate 71 76 70 Pulse Rate [Pulse Oximeter] Respiratory Rate Blood Pressure 151/79 H Blood Pressure [Le ft Arm] Blood Pressure [Ri ght Upper Arm] Pulse Oximetry 90 96 95 Oxygen Delivery Me thod 10/11/22 02:08 10/11/22 02:15 10/11/22 02:30 Temperature Pulse Rate 71 87 74 Pulse Rate [Pulse Oximeter] Respiratory Rate Blood Pressure Blood Pressure [Le ft Arm] Blood Pressure [Ri ght Upper Arm] Pulse Oximetry 95 96 97 Oxygen Delivery Me thod 10/11/22 02:45 10/11/22 03:00 10/11/22 03:15 Temperature Pulse Rate 65 65 72 Pulse Rate [Pulse Oximeter] Respiratory Rate Blood Pressure Blood Pressure [Le ft Arm] Blood Pressure [Ri ght Upper Arm] Pulse Oximetry 96 95 95 Oxygen Delivery Me thod 10/11/22 03:23 10/11/22 03:30 10/11/22 04:20 Temperature 98 F Pulse Rate 71 68 Pulse Rate [Pulse Oximeter] Respiratory Rate 18 Blood Pressure 143/87 H Blood Pressure [Le ft Arm] Blood Pressure [Ri ght Upper Arm] Pulse Oximetry 96 95 95 Oxygen Delivery Me thod Room Air 10/11/22 04:20 10/11/22 08:25 10/11/22 11:30 Temperature 97.9 F 98.2 F Pulse Rate Pulse Rate [Pulse Oximeter] 59 L 66 Respiratory Rate 18 16 16 Blood Pressure Blood Pressure [Le ft Arm] 128/76 122/74 Blood Pressure [Ri ght Upper Arm] Pulse Oximetry 95 93 93 Oxygen Delivery Me thod Room Air Room Air Room Air Results Labs Labs: Abnormal lab results 10/10/22 10/10/22 Range/Units 23:00 23:00 Neut % (Auto) 80.2 H (42.0-72.0) % Lymph % (Auto) 12.4 L (20-44) % Neut # (Auto) 8.20 H (1.7-7.0) K/uL Glucose 125 H (60-115) mg/dL Lipase 3695 H (23-300) U/L Diabetes panel 10/10/22 Range/Units 23:00 Sodium 136 (135-149) mmol/L Potassium 3.7 (3.6-5.1) mmol/L Chloride 101 (96-114) mmol/L Carbon Dioxide 27 (20-32) mmol/L BUN 22 (7-30) mg/dL Creatinine 1.1 (0.5-1.5) mg/dL Glucose 125 H (60-115) mg/dL Calcium 9.1 (8.4-10.6) mg/dL AST 34 (12-35) U/L ALT 22 (4-50) U/L Alkaline Phosphatase 124 (40-150) U/L Total Protein 7.2 (6.0-8.3) g/dL Albumin 4.6 (3.3-5.0) g/dL Calcium panel 10/10/22 Range/Units 23:00 Calcium 9.1 (8.4-10.6) mg/dL Albumin 4.6 (3.3-5.0) g/dL Pituitary panel 10/10/22 Range/Units 23:00 Sodium 136 (135-149) mmol/L Potassium 3.7 (3.6-5.1) mmol/L Chloride 101 (96-114) mmol/L Carbon Dioxide 27 (20-32) mmol/L BUN 22 (7-30) mg/dL Creatinine 1.1 (0.5-1.5) mg/dL Glucose 125 H (60-115) mg/dL Calcium 9.1 (8.4-10.6) mg/dL Adrenal panel 10/10/22 Range/Units 23:00 Sodium 136 (135-149) mmol/L Potassium 3.7 (3.6-5.1) mmol/L Chloride 101 (96-114) mmol/L Carbon Dioxide 27 (20-32) mmol/L BUN 22 (7-30) mg/dL Creatinine 1.1 (0.5-1.5) mg/dL Glucose 125 H (60-115) mg/dL Calcium 9.1 (8.4-10.6) mg/dL Total Bilirubin 0.5 (0.1-1.5) mg/dL AST 34 (12-35) U/L ALT 22 (4-50) U/L Alkaline Phosphatase 124 (40-150) U/L Total Protein 7.2 (6.0-8.3) g/dL Albumin 4.6 (3.3-5.0) g/dL All other labs normal. Imaging Abdomen CT scan report/results: report reviewed and image reviewed Abdominal ultrasound report/results: report reviewed and image reviewed Assessment and Plan Assessment and plan (1) Acute gallstone pancreatitis: Status: Acute Assessment and Plan: Patient is a 77-year-old male who presented to the emergency department for severe abdominal pain. Workup was obtained with labs significant for an elevated lipase (3695) and imaging demonstrating findings concerning for acute cholecystitis. He also has presence of a dilated common bile duct, but no stones seen. Findings and clinical history is consistent with gallstone pancreatitis, as well as possible acute cholecystitis. Low concern at this time for choledocholithiasis with patient having normal liver panel. He continues to be symptomatic with ongoing abdominal pain. Will plan to allow the patients pancreatitis to cool down and start patient on IV antibiotics, while trending his lipase levels. If they are down trending, will take the patient to the operating room tomorrow for laparoscopic cholecystectomy and intraoperative cholangiogram. If he has a worsening liver panel and up trending lipase, would want further evaluation with MRCP or ERCP prior. -IV Zosyn -IV and p.o. pain meds as needed -okay for clear liquids, NPO at midnight -encourage ambulation, SCDs for DVT prophylaxis -LFTs and lipase in the morning -anticipate going to the operating room tomorrow morning at 9:00 a.m. for laparoscopic cholecystectomy and intraoperative cholangiogram.
--- NOTE | 2022-10-11 15:13 | PC.NURSE ---
Shift Summary: Patient pleasant and cooperative. Up independently in room. Continues to be NPO. Pain 1-01/10, managed with PRN dilaudid. Patient developed swelling on right side of jaw around noon, and in to see patient this afternoon, no new orders at this time. Patient states swelling is not painful and does not affect breathing.
--- NOTE | 2022-10-11 16:45 | ONC.NURNOTE ---
resting. alert and oriented. vs wnl. ls clear. heart reg. abd soft and nondistended. poss bs. poss flatus. denies pain. denies nausea. offered sips and chips. pt states fine without. Ivf running. discuss surg tomorrow. here and supportive. no le edema
[2022-10-12] VITALS (17 sets, daily range): BP systolic 138–158; BP diastolic 74–95; PULSE 56–85; RESP 16; TEMP 36.2–37; O2SAT 92–96
[2022-10-12] MEDS: LACTATED RINGERS 1000 ML 1,000 ML 150 ML IV (04:56)
[2022-10-12] MEDS: PIPERACILLIN/TAZOBACTAM 3.375 GM in 0.9 % SODIUM CHLORIDE Mini-bag 100 ML IVPB ×2 (05:12→10:35)
--- NOTE | 2022-10-12 06:20 | PC.NURSE ---
VSS on RA. Patient is alert and oriented x4, able to make needs known to staff. Patient denies pain on assessment. IV antibiotic infused x2 this shift, tolerated well and on continues IV fluid. IV site clean intact and patent, no s/s of infection noted. Patient is independent and slept most of shift.
[2022-10-12 07:34] LABS: Basophils Absolute Auto 0.04 K/uL (0.00-0.30); Basophils Percent Auto 0.7 % (0.0-3.0); Eosinophils Absolute Auto 0.07 K/uL (0.00-0.50); Eosinophils Percent Auto 1.2 % (0.0-7.0); Hematocrit 40.5 % (37.0-53.0); Hemoglobin* 13.5 gm/dL (13.5-17.5); Immature Granulocytes Abs Auto 0.02 K/uL (0.00-0.30); Immature Granulocytes Pct Auto 0.3 %; Lymphocytes Absolute Auto 1.23 K/uL (0.90-2.90); Lymphocytes Percent Auto 21.1 % (20-44); Mean Corpuscular HGB Conc 33 gm/dL (32-36); Mean Corpuscular Hemoglobin 32 pg (26-34); Mean Corpuscular Volume 96 fL (80-100); Monocytes Percent Auto 8.9 % (0.0-11.0); Neutrophils Absolute Auto 3.96 K/uL (1.7-7.0); Neutrophils Percent Auto 67.8 % (42.0-72.0); Platelet Count* 197 K/uL (140-440); RDW Coefficient of Variation % 12.7 % (11.5-15.5); Red Blood Count 4.22 m/uL (4.30-5.90); White Blood Count* 5.84 K/uL (4.50-11.00)
[2022-10-12 07:45] LABS: Albumin* 3.7 g/dL (3.3-5.0); Chloride* 105 mmol/L (96-114)
[2022-10-12 07:46] LABS: Potassium* 3.8 mmol/L (3.6-5.1); Sodium* 137 mmol/L (135-149)
[2022-10-12 07:48] LABS: Alanine Aminotransferase* 18 U/L (4-50); Alkaline Phosphatase* 87 U/L (40-150); Aspartate Amino Transferase* 23 U/L (12-35); Blood Urea Nitrogen* 11 mg/dL (7-30); Calcium* 8.5 mg/dL (8.4-10.6); Carbon Dioxide* 29 mmol/L (20-32); Creatinine* 1.2 mg/dL (0.5-1.5); Est. Creatinine Clearance* 48.96; Estimated Glomerular Filt Rate 63 ml/min; Glucose* 93 mg/dL (60-115); Lipase* 217 U/L (23-300); Slide Review Reflex No
--- NOTE | 2022-10-12 10:01 | PM.IMPN1 ---
Progress Note: A&P Assessment and plan (1) Acute cholecystitis: Problem details: CT is unremarkable. Abdominal ultrasound suggests acute cholecystitis. Continue piperacillin/tazobactam. LFTs improved overnight. Planning cholecystectomy today. Status: Acute (2) Acute gallstone pancreatitis: Status: Acute (3) Toenail fungus: Problem details: Terbinafine can cause pancreatitis but in this setting it appears unlikely that it is the cause Status: Acute (4) Essential hypertension: Problem details: Hold blood pressure medicines for now. Status: Acute Plan Reviewed the patient's chart, including H&P, consult notes, labs, and medications. Awaiting cholecystectomy today with Dr. Roberts. Subjective Time Seen by Provider: 09:54 Date Seen: 10/12/22 Interval history: Doing well. Smiling, joking. Denies pain. Still has mild residual pressure in RUQ, no pain. Very hungry - planning what to order to eat after surgery today. Exam Narrative: Exam Narrative: General: No acute distress. Awake, alert, oriented x3. No pallor. No jaundice. Oropharynx: Clear. Mucous membranes moist. Cardiovascular: Regular rate and rhythm. No murmurs, gallops, or rubs. Respiratory: Clear to auscultation bilaterally. No wheezes or crackles. Abdomen: Bowel sounds present. Soft, nondistended, nontender, endorses pressure sensation in the right upper quadrant with palpation. Const: Vital Signs, click to edit/add: Vital Signs - 24 hr 10/11/22 11:30 10/11/22 16:44 10/11/22 20:00 Temperature 98.2 F 97 F L 98.2 F Pulse Rate [Pulse Oximeter] 66 71 69 Respiratory Rate 16 15 16 Blood Pressure [Le ft Arm] 122/74 137/81 133/87 Pulse Oximetry 93 97 94 Oxygen Delivery Me thod Room Air Room Air Room Air 10/12/22 00:00 10/12/22 04:00 10/12/22 07:00 Temperature 98.6 F 97.9 F Pulse Rate [Pulse Oximeter] 66 61 61 Respiratory Rate 16 16 16 Blood Pressure [Le ft Arm] 138/75 Pulse Oximetry 93 95 Oxygen Delivery Me thod Room Air Room Air 10/12/22 07:30 Temperature 98.4 F Pulse Rate [Pulse Oximeter] 56 L Respiratory Rate 16 Blood Pressure [Le ft Arm] 145/74 H Pulse Oximetry 96 Oxygen Delivery Me thod Room Air Documenting provider has reviewed patient's vital signs: yes Labs Labs: Laboratory Results - last 24 hr 10/12/22 10/12/22 06:39 06:39 WBC 5.84 RBC 4.22 L Hgb 13.5 Hct 40.5 MCV 96 MCH 32 MCHC 33 RDW Coeff of Mason 12.7 Plt Count 197 Neut % (Auto) 67.8 Lymph % (Auto) 21.1 Daggett % (Auto) 8.9 Eos % (Auto) 1.2 Baso % (Auto) 0.7 Neut # (Auto) 3.96 Lymph # (Auto) 1.23 Daggett # (Auto) 0.50 Eos # (Auto) 0.07 Baso # (Auto) 0.04 Abs Immat Gran (auto) 0.02 Imm/Tot Granulo (auto) 0.3 Sodium 137 Potassium 3.8 Chloride 105 Carbon Dioxide 29 BUN 11 Creatinine 1.2 Estimated Creat Clear 48.96 Estimated GFR 63 Glucose 93 Calcium 8.5 Total Bilirubin 1.0 Direct Bilirubin 0.0 AST 23 ALT 18 Alkaline Phosphatase 87 Total Protein 6.0 Albumin 3.7 Lipase 217
--- NOTE | 2022-10-12 11:15 | CRLHL7_ITS ---
For Patients: As a result of the Century Cures Act, medical imaging exams and procedure reports are released immediately into your electronic medical record. You may view this report before your referring provider. If you have questions, please contact your health care provider. INDICATION : Laparoscopic cholecystectomy. TECHNIQUE : Intraoperative cholangiogram. Contrast injected via gallbladder neck and cystic duct. FINDINGS : Fluoroscopy time was 53.2 seconds. One image was obtained. IMPRESSION : Normal caliber intra and extrahepatic ducts. No filling defects. Contrast seen within the duodenum. Normal intraoperative cholangiogram. Dictated by Eliu Cornell MD @ 10/14/2022 8:33:47 AM (Electronically Signed)
[2022-10-12] MEDS: IOPAMIDOL 50 ML VIAL INJECTION (13:02)
[2022-10-12] MEDS: 0.9% SODIUM CHL 50 ML VIAL INJECTION (13:02)
[2022-10-12] MEDS: BUPIVACAINE 0.5% 30 ML INJECTION (13:43)
--- NOTE | 2022-10-12 14:00 | P.GSOP_ITS ---
Operative Note Date of procedure: 10/12/22 Type of Procedure: Laparoscopic cholecystectomy with intraoperative cholangiogram Procedure Description: After discussing the risks and benefits of the procedure, the patient signed informed consent.? The operative site was marked and the patient was brought to the operating room and placed on the operating table in supine position.? Care was taken to pad the patient's pressure points.?? The patient was then intubated by anesthesia.?? The operative site was then prepped and draped in the usual sterile fashion.? A time-out was then performed. Entrance to the abdomen was gained via a 5 mm Visiport in the left upper qu adrant. The abdomen was insufflated and briefly surveyed for signs of injury. There was none. 11 mm umbilical port was placed as well as 2 working ports along the right costal margin. Patient was then placed in reverse Trendelenburg position with the right side up. The gallbladder fundus was grasped and retracted cephalad. There was a significant amount of omental adhesions along the liver edge and gallbladder bed. A large amount of dissection was needed to free omental adhesions from the gallbladder. The infundibulum was grasped. A combination of hook cautery and blunt dissection was used to carefully dissect out the cystic duct and artery until they could clearly be seen entering the gallbladder without any intervening structures. The gallbladder was dissected off the cystic plate to achieve the critical view. Once this was achieved the cystic artery was each clipped with 2 clips proximally and 1 clip distally and transected with the scissors. A clip was placed distal on the cystic duct, in preparation for the intraoperative cholangiogram. During manipulation of the procedure this did fall off and was left in the abdomen. The cystic duct was partially transected distally and an intraoperative cholangiogram catheter placed. Patient was leveled out and the C-arm was brought into view with contrast injected. Evidence of contrast flowing freely through the cystic and c ommon bile duct and emptying into the duodenum. No evidence of any stones or obstruction. The C-arm was then taken off the field and the patient placed back into gallbladder position. The intraoperative cholangiogram catheter was removed. Two clips were placed proximal to the incision on the cystic duct and 1 clip distally above. The cystic duct was transected and the gallbladder was then taken off of the liver bed. The gallbladder was removed from the abdomen using an Endo-Catch bag. The gallbladder bed was surveyed for hemostasis. A small amount of bile which had spilled was suctioned from the abdomen. The umbilical port fascia was closed with 0 Vicryl via Angelito-Erica. Other ports were removed under direct visualization. The skin was closed with absorbable subcuticular suture. Instrument sponge and needle counts were correct at the end of the case. The patient was then woken and transferred to the PACU in stable condition. ? Findings: Distended gallbladder. Intraoperative cholangiogram performed with no evidence of choledocholithiasis. Anesthesia: GETA Surgeon: Madalyn Roberts MD Estimated blood loss (mL): 5 Condition: stable Disposition: floor
--- NOTE | 2022-10-12 14:00 | W.ANESCHARGE ---
Anesthesia Charges Start Date/Time Anesthesia Start Date: 10/12/22 Anesthesia Start Time: 11:46 Stop Date/Time Anesthesia Stop Date: 10/12/22 Anesthesia Stop Time: 14:00 Summary Emergency: Yes Extremes of Age: Over 71-CPT [id number]
--- NOTE | 2022-10-12 14:11 | PC.NURSE ---
Pt NPO for lap monica with Dr. Roberts this morning. Haven present at bedside to discuss post-op care and d/c goals with RN and pt. Allergy band applied. SBAR & preop checklist reviewed per protocol. IV Zosyn infused at 10:35 w/o difficulty, pt taken to OR in his hospital bed at 10:[address] Roberts in to review surgical outcome with pt's Haven after procedure completed.
--- NOTE | 2022-10-12 14:15 | SUR.PHASEI ---
Met PACU criteria to be discharged, approved by SENIOR ARCHITECT
[2022-10-12] MEDS: OXYCODONE 5 MG TABLET PO (16:07)
--- NOTE | 2022-10-12 17:36 | P.DS_ITS ---
DS: Providers Provider Date Seen: 10/12/22 Date of admission: 10/11/22 04:10 Primary care physician: Reanna Willard MD Admitting Clinician: Judith Reeder MD Consults: 10/11/22 10:46 Consult to Physician [CONS] Routine Comment: Consulting Provider: Madalyn Roberts Has provider been notified: Yes Attending Physician on discharge: Blanche Titus MD Date of Discharge: 10/12/22 DS: Diagnosis Discharge Diagnosis (1) Acute cholecystitis: Status: Acute Problem details: - CT unremarkable, ultrasound on admission suggested acute cholecystitis - Cholecystectomy with Dr. Roberts on 10/12, no surgical or anesthetic complications (2) Acute gallstone pancreatitis: Status: Acute Problem details: - symptoms resolved, lipase normalized during stay DS: Summary Hospital Course Hospital Course: Patient admitted to the hospital on 10/11/2022 for nausea and abdominal pain. Admission labs included elevated lipase; admission imaging + for acute cholecystitis. Patient underwent cholecystectomy with Dr. Roberts of General Surgery on 10/12/22, this was uncomplicated. He felt comfortable discharging postoperatively and will be going home with his . Follow-up with general surgery and PCP. Status at Discharge Functional status at discharge: independent ambulation Overall status at discharge: patient is progressing back to baseline Time Spent with Patient Time attestation: Total time spent providing and/or coordinating discharge services: Time spent: Less than 30 minutes Exam Narrative: Exam Narrative: Patient is nontoxic in appearance, ambulating through the hyatt. No concerning findings on formal exam performed by Dr. Dove earlier today. Const: Vital Signs, click to edit/add: Vital Signs - 24 hr 10/11/22 20:00 10/12/22 00:00 10/12/22 04:00 Temperature 98.2 F 98.6 F 97.9 F Pulse Rate Pulse Rate [Pulse Oximeter] 69 66 61 Respiratory Rate 16 16 16 Blood Pressure Blood Pressure [Le ft Arm] 133/87 138/75 Pulse Oximetry 94 93 95 Oxygen Delivery Me thod Room Air Room Air Room Air Oxygen Flow Rate 10/12/22 07:00 10/12/22 07:30 10/12/22 13:56 Temperature 98.4 F 97.2 F L Pulse Rate 77 Pulse Rate [Pulse Oximeter] 61 56 L Respiratory Rate 16 16 16 Blood Pressure 156/76 H Blood Pressure [Le ft Arm] 145/74 H Pulse Oximetry 96 94 Oxygen Delivery Me thod Room Air Room Air Oxygen Flow Rate 10/12/22 14:15 10/12/22 14:00 10/12/22 14:05 Temperature 97.5 F L Pulse Rate 75 74 75 Pulse Rate [Pulse Oximeter] Respiratory Rate 16 16 16 Blood Pressure 153/87 H 143/83 H 146/85 H Blood Pressure [Le ft Arm] Pulse Oximetry 96 92 94 Oxygen Delivery Me thod Room Air Room Air Nasal Cannula Oxygen Flow Rate 0 2 10/12/22 14:10 10/12/22 14:24 10/12/22 14:30 Temperature 98 F 98 F Pulse Rate 77 80 Pulse Rate [Pulse Oximeter] Respiratory Rate 16 16 16 Blood Pressure 157/90 H Blood Pressure [Le ft Arm] 154/82 H 145/77 H Pulse Oximetry 96 96 Oxygen Delivery Me thod Room Air Room Air Room Air Oxygen Flow Rate 0 0 10/12/22 14:45 10/12/22 15:00 10/12/22 15:15 Temperature Pulse Rate Pulse Rate [Pulse Oximeter] 85 80 80 Respiratory Rate 16 16 16 Blood Pressure Blood Pressure [Le ft Arm] 158/92 H 152/84 H 144/81 H Pulse Oximetry 93 96 Oxygen Delivery Me thod Room Air Room Air Room Air Oxygen Flow Rate 10/12/22 15:30 10/12/22 16:00 10/12/22 16:00 Temperature 98 F Pulse Rate Pulse Rate [Pulse Oximeter] 80 82 82 Respiratory Rate 16 16 16 Blood Pressure Blood Pressure [Le ft Arm] 156/95 H 157/86 H 157/86 H Pulse Oximetry 94 95 95 Oxygen Delivery Me thod Room Air Room Air Room Air Oxygen Flow Rate 0 DS: Data Data Completed and Pending Labs on day of discharge: Labs from last 24 hours 10/12/22 10/12/22 06:39 06:39 WBC 5.84 RBC 4.22 L Hgb 13.5 Hct 40.5 MCV 96 MCH 32 MCHC 33 RDW Coeff of Mason 12.7 Plt Count 197 Neut % (Auto) 67.8 Lymph % (Auto) 21.1 Bertie % (Auto) 8.9 Eos % (Auto) 1.2 Baso % (Auto) 0.7 Neut # (Auto) 3.96 Lymph # (Auto) 1.23 Bertie # (Auto) 0.50 Eos # (Auto) 0.07 Baso # (Auto) 0.04 Abs Immat Gran (auto) 0.02 Imm/Tot Granulo (auto) 0.3 Sodium 137 Potassium 3.8 Chloride 105 Carbon Dioxide 29 BUN 11 Creatinine 1.2 Estimated Creat Clear 48.96 Estimated GFR 63 Glucose 93 Calcium 8.5 Total Bilirubin 1.0 Direct Bilirubin 0.0 AST 23 ALT 18 Alkaline Phosphatase 87 Total Protein 6.0 Albumin 3.7 Lipase 217 Discharge Plan Discharge Disposition: Home, Self-Care Date of Admission: 10/11/22 04:10 Consulting Providers: Madalyn Roberts Primary Care Provider: Reanna Willard Condition: Stable Anticipated Discharge Date/Time: 10/12/22 17:34 Discharge Medications: New oxycodone 5 mg tablet 5 mg PO Q6H PRN (Reason: pain) Qty: 10 0RF senna 8.6 mg capsule 8.6 mg PO DAILY PRN (Reason: constipation) Qty: 90 0RF Rx Instructions: Please take stool softeners while on narcotic pain medication. Stop if having > 2 stools per day. Continued coenzyme Q10 100 mg capsule 100 mg PO DAILY Probiotic Acidophilus 1.5 mg (250 million cell) capsule 100 mmu cells PO DAILY multivitamin Tablet 1 tab PO QAM omeprazole 20 mg capsule,delayed release(DR/EC) 20 mg PO DAILY trazodone 100 mg tablet 100 mg PO HS lisinopril 20 mg tablet 20 mg PO DAILY simvastatin 10 mg tablet 10 mg PO HS acetaminophen 325 mg tablet 650 mg PO Q4-6H PRN Rx Instructions: NO MORE THAN 4000 MG/DAY chlorthalidone 25 mg tablet 25 mg PO Q48H fluorouracil 5 % cream 5 applic topical .One Day Per Week omega-3 fatty acids [Fish Oil] 1 cap PO DAILY loratadine 10 mg tablet 10 mg PO DAILY Held terbinafine HCl 250 mg tablet 250 mg PO DAILY Hold Instructions: Resume on 10/18/22. Discharge Orders: Discharge Order (Routine); Ordered 10/12/22 Ordered By: Blanche Titus Consulting provider completed their portion of the discharge: Yes Patient Education: General Anesthesia (DC), Laparoscopic Cholecystectomy (DC), Post-Operative Instructions: Laparoscopic Cholecystectomy Additional Instructions: Okay to shower starting tomorrow, do not soak in a bath or go swimming for 2 weeks. Activity Level: No strenuous activity Activity Detail: Activity as tolerated. Avoid strenuous activity. No lifting greater than 20 lb for 2 weeks. Discharge Diet: Low Fat/Low Cholesterol Diet Detail: Continue with a low-fat diet for 2 weeks. After 2 weeks you can start adding in more normal foods. Follow Up Appointments: Madalyn Roberts MD [Staff Physician] - (2 weeks) Reanna Willard MD [Primary Care Provider] - Forms: [employer] Instructions
--- NOTE | 2022-10-12 18:39 | PC.NURSE ---
Pt returned to room 258 in his hospital bed at 1424 pm from PACU s/p bill anderson with Dr. Roberts. Sips & chips only this evening. [facility] present at bedside. Please see 6 hour post op VS & initial assessment from PACU. VS @ 1700 BP156/84,86 pulse, 16 RR and 94% room air. Pt has voided twice since surgery by ambulating to BR. Oxycodone 5mg PO for incision pain 2-3 out of 10. Pt walked in hallway w/SBA, denied dizziness, nausea or chest discomfort. Teaching on TCDB and abdominal splinting. Pt and verbalized understanding of discharge diagnosis, home meds, pain management plan, low fat/low cholesterol diet, f/up appt with surgeon and sx to report urgently to physician. Discharged via w/c to own home with all personal belongings with his [facility] as transportation @ 1830 pm.
== END 2022-10-12 18:30 | disposition home or self-care (01) | DRG 417 ==
LOC: ED 10-11 01:56 → MEDSURG 10-11 04:10
PROVIDERS: Family Medicine; Surgery; Admitting Provider Family Medicine; Emergency Provider Family Medicine; PCP Internal Medicine; Visit Provider Family Medicine
PROC: 0FT44ZZ Resection of Gallbladder, Percutaneous Endoscopic Approach (ICD-10-PCS; CPT 47563; principal; 2022-10-12 11:15)
DX: K80.00 Calculus of gallbladder with acute cholecystitis without obstruction (principal); K85.10 Biliary acute pancreatitis without necrosis or infection; B35.1 Tinea unguium; Z79.899 Other long term (current) drug therapy; I10 Essential (primary) hypertension
CPT/HCPCS: 36415; 74177; 74300; 76705; 790; 80048; 80076; 83690; 84484; 85025; 87631; 88304; 93005; 99100; 99140; 99285; A9270; J0330; J1100; J1170; J1885; J2405; J2543; J2704; J3010; J3490; J7050; J7120; Q9967

== ENCOUNTER 2023-02-06 08:19 | Outpatient (CLI) | payer MEDICARE, BC, SELFPAY | END 2023-02-06 08:20 | disposition home or self-care (01) | LOC: NFLDREF 14:12 | PROVIDERS: PCP Internal Medicine; Referring Provider Internal Medicine; Visit Provider Internal Medicine | DX: I10 Essential (primary) hypertension (principal); E78.5 Hyperlipidemia, unspecified | CPT/HCPCS: 80048; 80061 ==

== ENCOUNTER 2023-06-04 08:08 | Day surgery (SDC) | payer MEDICARE, BC, SELFPAY ==
[2023-06-04] MEDS: TETRACAINE 0.5% OPHTH 1 DROP EYE-RIGHT ×2 (08:20→08:25)
[2023-06-04] MEDS: KETOROLAC OPHTH 0.5% 1 DROP EYE-RIGHT ×3 (08:20→08:30)
[2023-06-04 08:30] VITALS: BP 139/75; PULSE 74; RESP 16; TEMP 36.1; O2SAT 98
--- NOTE | 2023-06-04 08:30 | W.ANESCHARGE ---
Anesthesia Charges Start Date/Time Anesthesia Start Date: 06/04/23 Anesthesia Start Time: 09:20 Stop Date/Time Anesthesia Stop Date: 06/04/23 Anesthesia Stop Time: 09:55 Summary Extremes of Age - Over 70 or under 1: MDA
[2023-06-04 08:32] VITALS: BMI 26.4
[2023-06-04] MEDS: SODIUM CHLORIDE 0.9 % (FLUSH) 10 ML SYRINGE IVF (08:40)
[2023-06-04] MEDS: TETRACAINE 0.5% OPHTH 2 DROP EYE-RIGHT (09:23)
[2023-06-04] MEDS: BALANCED SALT IRRIG SOLN 15 ML EYE-RIGHT (09:28)
[2023-06-04 09:50] VITALS: BP 137/69; PULSE 53; RESP 16; TEMP 36.1; O2SAT 97
--- NOTE | 2023-06-04 09:54 | W.ANESCHARGE ---
Anesthesia Charges Start Date/Time Anesthesia Start Date: 06/04/23 Anesthesia Start Time: 09:20 Stop Date/Time Anesthesia Stop Date: 06/04/23 Anesthesia Stop Time: 09:55
--- NOTE | 2023-06-04 09:57 | W.PM.OPTPROC ---
Procedure Note Date of procedure: 06/04/23 Will [facility] bill your pro fee for this procedure?: Yes Procedure Description: SURGEON: Charlene Gonzales MD PREOPERATIVE DIAGNOSIS: Nuclear sclerotic cataract, right eye. POSTOPERATIVE DIAGNOSIS: Nuclear sclerotic cataract, right eye. NAME OF OPERATION: Phacoemulsification of cataract with posterior chamber intraocular lens implantation in the right eye. ANESTHESIA: Topical. ESTIMATED BLOOD LOSS: Less than 2 cc. COMPLICATIONS: None. PATHOLOGY SPECIMEN: None. INDICATIONS: See consult note for details. The risks, benefits and alternatives of the procedure were explained to the patient, who elected to proceed and signed informed consent to do so. PROCEDURE: The patient was brought to the pre-holding area where the right eye was identified as the operative eye. I placed my initials above this eye. The patient received eye drops consisting of 0.5% tetracaine, 1% tropicamide, 10% phenylephrine, and 0.5% ketorolac. The patient was then brought to the operating room where the right eye was again identified as the operative eye. The eye was prepped with Betadine and draped in the usual sterile ophthalmic fashion. A #15 super-sharp blade was used to create a paracentesis site. 1% non-preserved intracameral lidocaine was injected into the anterior chamber. Endocoat was injected into the anterior chamber. A 2.4 mm keratome was used to create a three-plane self-sealing incision 1 mm anterior to the temporal limbus. A cystotome was used to create an anterior capsular leaflet. The Utrata forceps were used to extend this to form a continuous curvilinear capsulorrhexis. Hydrodissection was performed. The cataract was removed with phacoemulsification using the kklemd-[id number]-fwsqmwy technique. The irrigation and aspiration tip was used to remove the remaining cortex. Healon was injected into the capsular bag. An EM ZCB00 intraocular lens of 18.5 iopters was injected into the capsular bag. The irrigation and aspiration tip was used to remove the remaining viscoelastic. Balanced salt solution on a cannula was used to hydrate the wound, and the wound was found to be watertight. The pupil was noted to be round. DISPOSITION: The patient was taken to the recovery room and discharged to home in stable condition. The patient was instructed to call me or go to the emergency department with any sudden change, including dramatic loss of vision, severe pain in the eye or eyebrow region, nausea, or vomiting. The patient will follow up in the clinic tomorrow morning.
== END 2023-06-04 10:18 | disposition home or self-care (01) ==
PROVIDERS: PCP Internal Medicine; Visit Provider Ophthalmology
PROC: (CPT 66984; principal; 2023-06-04 08:15)
DX: H25.11 Age-related nuclear cataract, right eye (principal)
CPT/HCPCS: 66984; 00142; 99100; A9270; J2250; J3010; V2632

== ENCOUNTER 2023-06-18 08:08 | Day surgery (SDC) | payer MEDICARE, BC, SELFPAY ==
[2023-06-18] MEDS: KETOROLAC OPHTH 0.5% 1 DROP EYE-LEFT ×3 (08:15→08:25)
[2023-06-18] MEDS: TETRACAINE 0.5% OPHTH 1 DROP EYE-LEFT ×2 (08:15→08:20)
[2023-06-18 08:34] VITALS: BMI 26.4
--- NOTE | 2023-06-18 08:35 | W.ANESCHARGE ---
Anesthesia Charges Start Date/Time Anesthesia Start Date: 06/18/23 Anesthesia Start Time: 09:13 Stop Date/Time Anesthesia Stop Date: 06/18/23 Anesthesia Stop Time: 09:45 Summary Extremes of Age - Over 70 or under 1: MDA
[2023-06-18 08:36] VITALS: BP 137/86; PULSE 60; RESP 16; TEMP 36.3; O2SAT 97
[2023-06-18] MEDS: SODIUM CHLORIDE 0.9 % (FLUSH) 10 ML SYRINGE IVF (08:38)
--- NOTE | 2023-06-18 08:38 | SUR.PREOP ---
The eye drops brought by the patient (Ketorolac and Prednisolone) are examined and I have determined they are labeled by the patient's pharmacy for this patient as prescribed by the surgeon. The bottles are intact, recently obtained and appear to be correct.belle mckeon rn
[2023-06-18] MEDS: TETRACAINE 0.5% OPHTH 2 DROP EYE-LEFT (09:17)
--- NOTE | 2023-06-18 09:17 | W.ANESCHARGE ---
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
[2023-06-18] MEDS: BALANCED SALT IRRIG SOLN 15 ML EYE-LEFT (09:20)
[2023-06-18 09:45] VITALS: BP 125/70; PULSE 53; RESP 16; TEMP 36.3; O2SAT 98
--- NOTE | 2023-06-18 10:02 | SUR.PHASEII ---
The eye drops brought by the patient (Ketorolac and Prednisolone) are examined and I have determined they are labeled by the patient's pharmacy for this patient as prescribed by the surgeon. The bottles are intact, recently obtained and appear to be correct.
--- NOTE | 2023-06-18 11:15 | P.OPTPRC_ITS ---
Procedure Note Date of procedure: 06/18/23 Will [facility] bill your pro fee for this procedure?: Yes Procedure Description: SURGEON: Charlene Gonzales MD PREOPERATIVE DIAGNOSIS: Mature cataract, left eye. POSTOPERATIVE DIAGNOSIS: Mature cataract, left eye. NAME OF OPERATION: Phacoemulsification of cataract with posterior chamber intraocular lens implantation in the left eye. ANESTHESIA: Topical. ESTIMATED BLOOD LOSS: Less than 2 cc. COMPLICATIONS: None. PATHOLOGY SPECIMEN: None. INDICATIONS: See consult note for details. The risks, benefits and alternatives of the procedure were explained to the patient, who elected to proceed and signed informed consent to do so. PROCEDURE: The patient was brought to the pre-holding area where the left eye was identified as the operative eye. I placed my initials above this eye. The patient received eye drops consisting of 0.5% tetracaine, 1% tropicamide, 10% phenylephrine, and 0.5% ketorolac. The patient was then brought to the operating room where the left eye was again identified as the operative eye. The eye was prepped with Betadine and draped in the usual sterile ophthalmic fashion. A #15 super-sharp blade was used to create a paracentesis site. 1% non-preserved intracameral lidocaine was injected into the anterior chamber. Endocoat was injected into the anterior chamber. A 2.4 mm keratome was used to create a three-plane self-sealing incision 1 mm anterior to the temporal limbus. A cystotome was used to create an anterior capsular leaflet. The Utrata forceps were used to extend this to form a continuous curvilinear capsulorrhexis. Hydrodissection was performed. The cataract was removed with phacoemulsification using the yugkmm-apq-hagqfuk technique. The irrigation and aspiration tip was used to remove the remaining cortex. Healon was injected into the capsular bag. An EM ZCB00 intraocular lens of 16.0 diopters was injected into the capsular bag. The irrigation and aspiration tip was used to remove the remaining viscoelastic. Balanced salt solution on a cannula was used to hydrate the wound, and the wound was found to be watertight. The pupil was noted to be round. DISPOSITION: The patient was taken to the recovery room and discharged to home in stable condition. The patient was instructed to call me or go to the emergency department with any sudden change, including dramatic loss of vision, severe pain in the eye or eyebrow region, nausea, or vomiting. The patient will follow up in the clinic tomorrow morning.
== END 2023-06-18 10:04 | disposition home or self-care (01) ==
LOC: OR 08:09
PROVIDERS: PCP Internal Medicine; Visit Provider Ophthalmology
PROC: (CPT 66984; principal; 2023-06-18 08:15)
DX: H25.89 Other age-related cataract (principal)
CPT/HCPCS: 66984; 142; 99100; A9270; J2250; J3010; V2632

== ENCOUNTER 2024-03-08 09:59 | Outpatient (CLI) | payer MEDICARE, BC, SELFPAY ==
--- OUTSIDE RECORDS SUMMARY | 2024-03-08 10:31 | XMS_ITS | Clinical Summary ---
Author Name Unknown Organization [facility] Address [place], [place] [address] Care Team Providers Care Pcat Instructor Name Role Phone Sixto Russell Raymond Unavailable [phone] Reanna Willard MD Primary Care Provider [phone] Allergies Active Allergy Reactions Criticality Noted Date Comments Atorvastatin Myalgia 07/10/2008 Medications Medication Sig Dispensed Refills Start Date End Date Status calcium 600 mg capsuleIndications:P reventative health care Take 1 capsule by mouth once daily. 0 12/17/2010 Active coenzyme q10 (CO Q-10) 100 mg CapIndications:Preve ntative health care Take by mouth once daily. 0 12/17/2010 Active omega-3 fatty acids-vitamin E (FISH OIL) 1,000 mg CapIndications:Mixed hyperlipidemia Take by mouth. 0 12/17/2010 Active multivitamin-mineral s therapeutic (THERAPEUTIC-M) tabletIndications:Pr eventative health care Take 1 tablet by mouth once daily. 0 12/17/2010 Active cetirizine (ZYRTEC) 10 mg tabletIndications:Ch ronic rhinitis Take 1 tablet by mouth once daily. 0 12/17/2010 Active chlorthalidone (HYGROTON) 25 mg tabletIndications:Un specified essential hypertension Take 1 tablet by mouth once daily. 90 tablet 3 04/26/2013 Active lisinopril (PRINIVIL; ZESTRIL) 20 mg tabletIndications:Un specified essential hypertension Take 1 tablet by mouth once daily. 90 tablet 3 04/26/2013 Active omeprazole (PRILOSEC) 20 mg capsuleIndications:E sophageal reflux Take 1 capsule by mouth once daily before a meal. 90 capsule 3 04/26/2013 Active traZODone (DESYREL) 100 mg tabletIndications:In somnia, unspecified Take 1 tablet by mouth at bedtime. 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 Max acetaminophen dose: 4000mg in 24 hrs. 21 Tablet 10/19/2021 Active Active Problems Problem Noted Date Diagnosed Date Sciatica of right side 04/26/2013 Onychomycosis 04/26/2013 Overview: Left toes; will observe ACP (advance care planning) 03/09/2012 Overview: Discussed. 03/09/2012 Prostate nodule 03/09/2012 Overview: Noted first time today 03/09/2012 Erectile dysfunction 01/25/2011 Left hip pain 11/09/2009 Overview: leg length discrepancy - hip pain resolved with shoe lift! 03/12/2010 Preventative health care 01/06/2009 Overview: Colonoscopy 01/2009 normal repeat in10 years Unspecified essential hypertension 10/18/2008 Chronic rhinitis 10/15/2007 Sensorineural hearing loss, bilateral 10/15/2007 Other malignant neoplasm of skin, site unspecifi ed 10/15/2007 Overview: basal cell carcinoma neck Esophageal reflux 10/15/2007 Insomnia, unspecified 10/15/2007 Routine general medical exam ination at a health care facility 10/15/2007 Impaired fasting glucose 10/15/2007 Special screening for malignant neoplasm of pros mak 07/07/2007 Mixed hyperlipidemia 07/07/2007 Encounters Date Type Department Care Team Description 02/26/2024 Lab Requisition [facility] [phone] Salo Bradford MD from Last 3 Months Immunizations Name Administration Dates Next Due AMB Influenza, IIV3 (Age >=3 years)(Flu Clinic Only) 09/01/2013,08/16/2011,08/26/2008,2007 Influenza A (H1N1), Inactiva ada (Age >=3 Years) 11/09/2009 Influenza, IIV3 (Age >=3 years) 09/03/20 12,07/23/2010,08/03/2009,2006 Pneumococcal Poly,23-Valent (Pneumovax) 03/09/2012 Td (Age >=7 Years) 06/02/2002 Tdap 01/24/2011 [...] 2 Bertram Alive Father Alex (Age 78) CVA,CT Maternal Grandmother Day Mother Day Corrales (Age 74) Liver [place] Social History Tobacco Use Types Packs/Day Years Used Date Smoking Tobacco: Never Smokeless Tobacco: Never Tobacco Cessation:Counseling Given: Yes Alcohol Use Standard Drinks/Week Comments Yes 5 (1 standard drink = 0.6 oz pur e alcohol) 2-3 per week Social Connections Answer Date Recorded Frequency of Communication with Friends and Fami ly Not on file 10/25/2021 Financial Resource Strain Answer Date R ecorded Difficulty of Paying Living Expenses Not on file 10/25/2021 Difficulty of Paying Living Expenses Not on file 10/25/2021 Sex and Gender Information Value Date Recorded Sex Assigned at Not on file Gender Identity Not on file Sexual Orientation Not on file Obstetrics History Last Filed Vital Signs Vital Sign Reading Time Taken Comments Blood Pressure 124/68 11/29/2021 8:17 AM OENOLOGIST Pulse 58 11/29/2021 8:17 AM OENOLOGIST Temperature 36.7 ??C (98 ??F) 11/29/2021 8:17 AM OENOLOGIST Respiratory Rate - - Oxygen Saturation 99% 11/29/2021 8:17 AM OENOLOGIST Inhaled Oxygen Concentration - - Weight 77.1 kg (170 lb) 09/05/2021 11:17 AM CDT Height 174 cm (5' 8.5) 09/03/2013 12:48 PM CDT Body Mass Index 25.47 09/03/2013 12:48 PM CDT Plan of Treatment Health Maintenance Due Date Last Done Comments Depression screening for age 12+ 1958 BMI (ht and wt on same day) for age 18+ 1964 Hepatitis C screening for ag e 18-79 1963 Zoster (shingles) series for age 50+ (2 of 3) 12/10/2007 10/15/2007 Pneumococcal series for age 65+ (2 of 2 - PCV) 03/09/2013 03/09/2012 Medicare Wellness for age 65+ 04/27/2014 04/26/2013, 03/09/2012 Tetanus booster 01/24/2021 01/24/2011, 06/02/2002 COVID-19 vaccine series ( season) 2023 01/15/2021, 12/18/2020 Influenza for age 65+ 07/04/2024 09/01/2013 , 09/03/2012, 08/16/2011, Additional history exists Tdap Completed 01/24/2011 Procedures Procedure Name Priority Date/Time Associated Diagnosis Comments LAB TRACKING EVENT Routine 02/26/2024 10 :10 AM CDT PATH TISSUE EXAM Routine 02/26/2024 10:1 0 AM CDT from Last 3 Months Results * LAB TRACKING EVENT (02/26/2024 10:10 AM CDT) Other (Other) Client Collect / Unknown 02/26/2024 10:10 AM CDT 02/26/2024 3:58 PM CDT Salo Bradford MD LAB BILL ONLY [facility] [address] [place] [address], * PATH TISSUE EXAM (02/26/2024 10:10 AM CDT) Case Report Pathology Report ?Case: [id number] ? Authorizing Provider: ??Salo Bradford MD ?? Collected: ? 02/26/2024 1012 ? Ordering Location: ? [facility] ?Received: ?02/26/2024 1746 ? Pathologist: ? Ramandeep Barba MD ? Specimens: ?? A) - Left Clavicle ? B) - Chest, Left Upper Chest ? 03/01/2024 3:06 PM CDT [facility] Final Diagnosis A) SKIN, LEFT MID CLAVICLE, BIOPSY: 1. Lichen planus-like keratosis (lichenoid keratosis) 2. Negative for ??malignancy B) SKIN, LEFT UPPER CHEST, BIOPSY: 1. Dermal mixed acute and chronic inflammation, see comment 2. Negative for malignancy 03/01/2024 3:06 PM CDT [facility] Comment B) Deeper levels were examined to rule out a malignancy. The findings are suggestive but not diagnostic of a ruptured folliculitis/f ollicle. Please correlate with the clinical findings. If suspicion for neoplasm persists, additional sampling may be informative. 03/01/2024 3:06 PM CDT [facility] Clinical Information Possible BCC versus SCC versus other 03/01/2024 3:06 PM CDT [facility] Gross Description A) Received in formalin, labeled with the patient's name and A) left mid clavicle, is a 0.5 x 0.5 x 0.1 cm skin biopsy. There is a 0.5 x 0.5 x 0.1 cm flat quintero lesion. The specimen is inked orange, bisected and entirely submitted in one cassette. B) Received in formalin, labeled with the patient's name and B) left upper chest, is a 0.7 x 0.4 x 0.1 cm skin biopsy. There is a 0.7 x 0.4 x 0.1 cm flat quintero lesion. The specimen is inked blue, bisected and entirely submitted in one cassette. TLF 02/26/2024 03/01/2024 3:06 PM CDT [facility] Microscopic Description The final diagnosis is based on microscopic examination of appropriate sections of all specimens. 03/01/2024 3:06 PM CDT [facility] Additional Information Interpreted at [facility] - [address], [place] [address] 03/01/2024 3:06 PM CDT [facility] Other (Left Clavicle) 02/26/2024 10:12 AM CDT 02/26/2024 5:46 PM CDT Specimen (specimen) (Chest) 02/26/2024 10:10 AM CDT 02/26/2024 5:46 PM CDT Salo Bradford MD PATHOLOGY/CYTOLOG Y [facility] [address] [place] [address], from Last 3 Months Advance Directives Documents on File Type Date Recorded Patient Inker Machine Expl anation Healthcare Directive 10/19/2013 10:09 AM HEALTHCARE DIRECTIVE AND AMENDMENT, [facility], 02/28/2013 Care Teams Pcat Instructor Relationship Specialty Start Date End Date Reanna Willard MD [address] [place] [id number] PCP - General Internal Medicine 08/07/17 Sixto Russell [address] [place] [id number] Waste Water Plant Operator 03/09/12
--- OUTSIDE RECORDS SUMMARY | 2024-03-08 10:31 | XMS_ITS | Continuity of Care Document ---
Author Name Unknown Organization [facility] Address [address] [place] [address] Phone Care Team Providers Care Museum Assistant Name Role Phone Lux Rosario MD Unavailable Unavailable Allergies, Adverse Reactions, Alerts Substance Reaction Status Criticality No Known Allergies Active No Inform ation Medications Medication Instructions Dosage Effective Dates (start - stop) Status Comments HYDROCODONE -ACETAMINOPHEN (unknown strength) Not Available - Active LISINOPRIL (unknown strength) Not Available - Active SIMVASTATIN (unknown strength) Not Available - Active TRAZODONE HCL (unknown strength) Not Available - Active OMEPRAZOLE (unknown strength) Not Available - Active Procedures Procedure Date Office/Outpatient Visit,[facility] [place] Advance Directives Directive Yes / No Effective Date File Name No Information Encounters Encounter Description Practice Location Reason(s) For Visit Diagnoses Date Provider Providers Copied on Encounter [facility], [address], [place], [place], [id number] , [place] tel:[phone] [facility] No Information Mehbod Amir. [facility] [place], [address] [place] [address] [address], [place], [place], [id number] , [place]. tel:[phone] Office/Outpat ient Visit,[facility], [address], [place], [place], [id number] , [place] [phone] [facility] [place] ScoliosisSpinal stenosis, lumbar region with neurogenic claudication Mehbod Amir. [facility] [place], [address] [place] [address] [address], [place], [place], [id number] , [place]. tel: [phone] Referring Provider: Cyril Aguilar, [place] [address] [address], [place], [address]. tel:[phone] Family History Family Member Type Diagnosis Age At Onset No Information Payers Payer name Insurance type Covered green party ID Britney patel(s) [facility] [id number] Medicare [facility] [id number] Social History Type Description Quantity Date Captured Comments Sex Male Smoking Status No Information Chief Complaint And Reason For Visit No Information Reason For Referral Reason For Referral No Information History Of Present Illness Encounter Date Complaint History Of Prese nt Illness No Information Functional Status Date Functional Assessmen t No Information Instructions Date Instruction Additional Infor mation No Information Assessments Type Assessment Date No Information Patient Care Teams Name Effective Dates (start - stop) Status Members No Information
== END 2024-03-08 10:00 | disposition home or self-care (01) ==
PROVIDERS: PCP Internal Medicine; Visit Provider Internal Medicine
DX: E78.5 Hyperlipidemia, unspecified (principal); I10 Essential (primary) hypertension
CPT/HCPCS: 80048; 80061

== ENCOUNTER 2024-06-29 12:18 | Outpatient (CLI) | payer MEDICARE, BC, SELFPAY ==
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
--- OUTSIDE RECORDS SUMMARY | 2024-06-29 12:20 | XMS_ITS | Clinical Summary ---
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 Max acetaminophen dose: 4000mg in 24 hrs. 21 Tablet 10/19/2021 Active methylPREDNISolone (Medrol, Robert,) 4 mg tabletIndications:Katherine mbar radiculopathy,Lumbar facet arthropathy Take by mouth as instructed per packaging. 21 Tablet 05/26/2024 Active Active Problems Problem Noted Date Diagnosed [...] Encounters Date Type Department Care Team Description 06/17/2024 Telephone [facility] [address] [place] [address] Cyril Maciel MD Letter 06/04/2024 Medical Messaging [facility] [address] [place] [address] Cyril Maciel MD Kyte-back treatment 05/26/2024 4:20 PM CDT Procedure Only [facility] [address] [place] [address] Cyril Maciel MD Musculoskeletal Problem (Follow up back pa... 05/26/2024 Travel 05/26/2024 Telephone [facility] [address] [place] [address] Cyril Maciel MD Medication Management (Z-robert) from Last 3 Months Immunizations Name Administration [...] Alex Diabetes Maternal Grandmother Day Cancer Mother Windy LIver Diabetes Mother Windy Anesthesia Problem No Family History Blood Disease No Family History Relation Name Status Comments Brother 1 Alex (Age 30) MVA Brother 2 Bertram Alive Father Alex (Age 78) CVA,GA Maternal Grandmother Day Mother Day Corrales (Age [...] Sign Reading Time Taken Comments Blood Pressure 128/74 05/26/2024 4:16 PM CDT Pulse 81 05/26/2024 4:16 PM CDT Temperature 36.4 ??C (97.6 ??F) 05/26/2024 4:16 PM CD T Respiratory Rate - - Oxygen Saturation 97% 05/26/2024 4:16 PM CDT Inhaled Oxygen Concentration - - Weight 77.1 kg (170 lb) 09/05/2021 11:17 AM CDT Height 174 cm (5' 8.5) 09/03/2013 12:48 PM CDT Body Mass Index 25.47 09/03/2013 12:48 PM CDT Plan of Treatment Upcoming Encounters Date Type Department Care Team (Late st Contact Info) Description 06/29/2024 1:00 PM CDT Office Visit [facility] [address] [place] [address] Cyril Maciel MD [facility] [place] [address] Arrived Health Maintenance Due Date Last Done Comments [...] 04/26/2013, 03/09/2012 Tetanus booster 01/24/2021 01/24/2011, 06/02/2002 Influenza for age 65+ 07/04/2024 09/01/2013 , 09/03/2012, 08/16/2011, Additional history exists COVID-19 vaccine series ( season) 2024 03/31/2024, 07/15/2022, 02/10/2022, Additional history exists Tdap Completed 01/24/2011 Procedures Procedure Name Priority Date/Time Associated Diagnosis Comments AMB EPIDURAL STEROID INJECTION Routine 06/29/2024 8:09 AM CDT Lumbar radiculopathy Lumbar facet arthropathy DDD (degenerative disc disease), lumbar Spinal stenosis of lumbar region with neurogenic claudication from Last 3 Months Advance Directives Documents on File Type Date Recorded Patient Stripper [place] Expl anation Healthcare Directive 10/19/2013 10:09 AM HEALTHCARE DIRECTIVE AND AMENDMENT, [facility], 02/28/2013 Care Teams Wire Harness Assembler Relationship Specialty Start Date End Date Reanna Willard MD [address] [place] [address] PCP - General Internal Medicine 08/07/17 Sixto Russell [address] [place] [address] Bioinformatics Support Specialist 03/09/12
--- OUTSIDE RECORDS SUMMARY | 2024-06-29 12:20 | XMS_ITS | Encounter Summary ---
Author Organization [facility] Address [address] [place] [address] Care Team Providers Care Tool Engine Lathe Set Up Operator Name Role Phone Found, No Pcp MD Primary Care Provider Unavailab le Reason for Visit * Procedure/Equipment (Routine) - Incomplete Specialty Diagnoses / Procedures Referred By Contsal t Referred To Contact Procedures XR Chest 2 Views Krystle Henry, [place] [address] [place] [address] Referral ID Status Reason Start Date Expiration Date V isits Requested Visits Authorized [id number] Incomplete 06/05/2024 09/04/2025 1 1 Encounter Details Date Type Department Care Team (Late st Contact Info) Description 06/05/2024 8:40 PM CDT Ancillary Procedure [facility] [address] [place], [place] [id number] Social History Tobacco Use Types Packs/Day Years [...] on file documented as of this encounter Plan of Treatment Not on [...] curvature. No acute cardiopulmonary or musculoskeletalabnormalities. Krystle CHOI GD documented in this encounter Visit Diagnoses Not on filedocumented in this encounter Care Teams Tool Engine Lathe Set Up Operator Relationship Specialty Start Date End Date Found, No Pcp, [address] [facility] [place] [address] PCP - General 06/05/24 documented as of this encounter
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
--- OUTSIDE RECORDS SUMMARY | 2024-06-29 12:21 | XMS_ITS | Continuity of Care Document ---
Author Organization [facility] Address [address] [place] [address] Phone Care Team Providers Care Motor Vehicle Escort Driver Name Role Phone Marlene LAM, Lux Unavailable Unavailable Allergies, Adverse Reactions, Alerts Substance [...] - Active Procedures Procedure Date Office/Outpatient Visit,[facility] Advance Directives Directive Yes / No Effective Date File Name No Information Encounters Encounter Description Practice Location Reason(s) For Visit Diagnoses Date Provider Providers Copied on Encounter [facility], [address], [place], [place], [id number] , [place] tel: [phone] [facility] No Information Mehbod Amir. [facility], [address] [place] [address] [address], [place], [place], [id number] , [place]. tel: [phone] Office/Outpat ient Visit,[facility], [address], [place], [place], [id number] , [place] tel: [phone] [facility] [place] ScoliosisSpinal stenosis, lumbar region with neurogenic claudication Mehbod Amir. [facility], [address] [place] [address] [address], [place], [place], [id number] , [place]. tel: [phone] Referring Provider: Cyril Aguilar, [place] [address] [address], [place], [address]. tel:[phone] Family History Family Member Type Diagnosis Age At Onset No Information Payers Payer name Insurance type Covered green party ID Britney patel(s) [facility] [id number] Medicare [facility] [id number] 1 Social History Type Description Quantity Date [...]
== END 2024-06-29 12:19 | disposition home or self-care (01) ==
LOC: INJ CL 12:19
PROVIDERS: PCP Internal Medicine; Visit Provider Family Medicine
DX: M54.16 Radiculopathy, lumbar region (principal); M51.36 Other intervertebral disc degeneration, lumbar region
CPT/HCPCS: 62323; J0702; Q9966

== ENCOUNTER 2025-03-10 07:47 | Outpatient (CLI) | payer MEDICARE, BC, SELFPAY | END 2025-03-10 07:48 | disposition home or self-care (01) | LOC: NFLDREF 03-18 18:42 | PROVIDERS: PCP Internal Medicine; Referring Provider Internal Medicine; Visit Provider Internal Medicine | DX: E78.5 Hyperlipidemia, unspecified (principal); I10 Essential (primary) hypertension | CPT/HCPCS: 80048; 80061 ==

== ENCOUNTER 2025-03-29 07:17 | Outpatient (CLI) | payer MEDICARE, BC, SELFPAY ==
--- NOTE | 2025-03-29 07:30 | CRLHL7_ITS ---
For Patients: As a result of the 21st Century Cures Act, medical imaging exams and procedure reports are released immediately into your electronic medical record. You may view this report before your referring provider. If you have questions, please contact your health care provider. INDICATION: Lumbar radiculopathy. COMPARISON: 08/24/2021. Technique Sagittal T1, T2, and STIR sequences. Axial T1 and T2 weighted sequences. FINDINGS: Lumbar curve convex to the right. In sagittal plane, normal vertebral body alignment. No acute fractures. No new spondylolisthesis. No ligamentous injury. No suspicious osseous lesions. Normal conus terminates at L1. T12-L1: Disc degeneration posted this bulge. Flattening ventral theca sac. No narrowing of spinal canal. No neural foraminal narrowing. L1-2: Stable disc degeneration. No narrowing of the spinal canal. No neural foraminal narrowing. L2-3: Stable advanced disc degeneration loss disc height. Mixed Modic type 1 and 2 endplate changes. Mild narrowing of spinal canal. Mild narrowing of the left neural foramen. No narrowing of the right neural foramen. L3-4: Progressive disc degeneration and loss of disc height. Modic type 1 endplate changes. Diffuse disc bulge and endplate osteophytic ridging. Moderate severe narrowing of spinal canal. Mild right and moderate severe left neural foraminal narrowing. Potential impingement of the exiting left L3 nerve root. Severe facet arthropathy. L4-5: Disc degeneration. Modic type 2 endplate changes. Diffuse disc bulge. Moderate to severe narrowing of spinal canal. Moderate narrowing of bilateral foramina. Mild facet arthropathy. L5-S1: Progressive disc degeneration loss disc height. Modic type 1 endplate AC disc height. Posterior disc bulge. Tapered narrowing of the thecal sac. No impingement of the traversing S1 nerve roots. Moderate right and moderate severe left neural foraminal narrowing. Impingement of the exiting left L5 nerve root. Mild facet arthropathy. Bilateral facet joint fusions. Degenerative changes of the SI joints. Normal paraspinal soft tissues. IMPRESSION: 1. Normal alignment. No fractures. 2. Progressive lumbar spondylosis 3. At L2-3, mild narrowing of the spinal canal the neural foramina 4. At L3-4, progressive disc degeneration. Diffuse disc bulge and endplate osteophytic ridging. Moderate to severe narrowing of spinal canal and left neural foramen. Potential impingement of the exiting left L3 nerve root 5. At L4-5, moderate to severe narrowing of the spinal canal. Moderate narrowing of the bilateral neural foramina 6. At L5-S1, progressive disc degeneration. Moderate right and moderate to severe left neural foraminal narrowing. Impingement of the exiting left L5 nerve root Dictated by Jose Reyna MD @ 03/29/2025 9:05:50 AM (Electronically Signed)
== END 2025-03-29 07:18 | disposition home or self-care (01) ==
LOC: MRI 07:18
PROVIDERS: PCP Internal Medicine; Visit Provider Family Medicine
DX: M54.16 Radiculopathy, lumbar region (principal); M51.369 Other intervertebral disc degeneration, lumbar region without mention of lumbar back pain or lower extremity pain; M47.896 Other spondylosis, lumbar region; M51.379 Other intervertebral disc degeneration, lumbosacral region without mention of lumbar back pain or lower extremity pain; M47.816 Spondylosis without myelopathy or radiculopathy, lumbar region; M48.062 Spinal stenosis, lumbar region with neurogenic claudication
CPT/HCPCS: 72148

== ENCOUNTER 2025-04-19 06:53 | Outpatient (CLI) | payer MEDICARE, BC, SELFPAY | END 2025-04-19 06:54 | disposition home or self-care (01) | LOC: INJ CL 06:56 | PROVIDERS: PCP Internal Medicine; Visit Provider Family Medicine | DX: M54.16 Radiculopathy, lumbar region (principal); M51.369 Other intervertebral disc degeneration, lumbar region without mention of lumbar back pain or lower extremity pain | CPT/HCPCS: 62323; J0702; Q9966 ==

== ENCOUNTER 2025-05-27 07:19 | Outpatient (CLI) | payer MEDICARE, BC, SELFPAY | END 2025-05-27 07:20 | disposition home or self-care (01) | LOC: INJ CL 07:21 | PROVIDERS: PCP Internal Medicine; Visit Provider Family Medicine | DX: M54.16 Radiculopathy, lumbar region (principal); M51.369 Other intervertebral disc degeneration, lumbar region without mention of lumbar back pain or lower extremity pain | CPT/HCPCS: 64483; 64484; J1100; Q9966 ==